=== PATIENT | male | born 1950 | race Caucasian/White ===

== ENCOUNTER → 2018-02-13 07:01 | Outpatient (CLI) | payer MEDICARE, BC, SELFPAY ==
[2018-02-13 08:05] LABS: Alanine Aminotransferase 34 IU/L (21-72); Albumin 4.5 g/dL (3.5-5.0); Albumin Globulin Ratio 1.7 (1.0-2.8); Alkaline Phosphatase 85 U/L (38-126); Aspartate Aminotransferase 27 IU/L (17-59); BUN Creatinine Ratio 27.5 (6-22); Bilirubin Total 0.6 mg/dL (0.2-1.3); Blood Urea Nitrogen 22 mg/dL (9-20); Calcium 9.9 mg/dL (8.4-10.2); Carbon Dioxide 27 mmol/L (22-32); Chloride 101 mmol/L (98-107); Cholesterol 154 mg/dL (140-199); Estimated Glomerular Filt Rate > 60.0 mL/min (>60); Globulin 2.7 g/dL (1.7-4.1); Glucose 102 mg/dL (80-110); HDL Cholesterol 32 mg/dL (40-60); HEMOLYSIS < 15 (0-50); LDL Cholesterol Calculated 96 mg/dL (<100); Potassium 4.4 mmol/L (3.4-5.1); Sodium 141 mmol/L (137-145); Total Protein 7.2 g/dL (6.3-8.2); Triglycerides 130 mg/dL (35-150); Uric Acid 5.8 mg/dL (3.5-8.5)
[2018-02-13 08:34] LABS: Prostate Specific Antigen Scrn 2.58 ng/mL (0.1-4.0)
== END ==
PROVIDERS: PCP Internal Medicine; Visit Provider Internal Medicine
DX: I10 Essential (primary) hypertension (principal); E78.2 Mixed hyperlipidemia; M10.079 Idiopathic gout, unspecified ankle and foot
CPT/HCPCS: 36415; 80053; 80061; 84550; G0103

== ENCOUNTER → 2019-04-02 07:07 | Outpatient (CLI) | payer MEDICARE, BC, SELFPAY ==
[2019-04-02 08:30] LABS: Alanine Aminotransferase 44 IU/L (21-72); Albumin 4.6 g/dL (3.5-5.0); Albumin Globulin Ratio 1.8 (1.0-2.8); Alkaline Phosphatase 93 U/L (38-126); Aspartate Aminotransferase 28 IU/L (17-59); BUN Creatinine Ratio 27.8 (6-22); Bilirubin Total 0.6 mg/dL (0.2-1.3); Blood Urea Nitrogen 25 mg/dL (9-20); Calcium 9.8 mg/dL (8.4-10.2); Carbon Dioxide 24 mmol/L (22-32); Chloride 105 mmol/L (98-107); Cholesterol 127 mg/dL (140-199); Estimated Glomerular Filt Rate > 60.0 mL/min (>60); Globulin 2.5 g/dL (1.7-4.1); Glucose 104 mg/dL (80-110); HDL Cholesterol 29 mg/dL (40-60); HEMOLYSIS < 15 (0-50); LDL Cholesterol Calculated 74 mg/dL (<100); Potassium 4.4 mmol/L (3.4-5.1); Sodium 141 mmol/L (137-145); Total Protein 7.1 g/dL (6.3-8.2); Triglycerides 119 mg/dL (35-150); Uric Acid 5.7 mg/dL (3.5-8.5)
[2019-04-02 08:57] LABS: Prostate Specific Antigen Scrn 3.19 ng/mL (0.1-4.0)
== END ==
PROVIDERS: PCP Internal Medicine; Visit Provider Internal Medicine
DX: E78.2 Mixed hyperlipidemia (principal); I10 Essential (primary) hypertension; M10.079 Idiopathic gout, unspecified ankle and foot; Z12.5 Encounter for screening for malignant neoplasm of prostate
CPT/HCPCS: 36415; 80053; 80061; 84550; G0103

== ENCOUNTER → 2019-04-19 07:37 | Outpatient (CLI) | payer MEDICARE, BC, SELFPAY ==
--- NOTE | 2019-04-19 | DI.MRI.S_ITS ---
PROCEDURE: MR SHOULDER LT WO CON INDICATIONS: torn left rotator cuff TECHNIQUE: Noncontrast oblique coronal T2 fast spin echo with fat saturation, oblique sagittal T1 spin echo and T2 fast spin echo with fat saturation, axial T1 spin echo and T2 fast spin echo with fat saturation through the shoulder. COMPARISON: [facility] [place], CR, XR SHOULDER 2+ VIEWS LEFT, 04/14/2019, 8:13. FINDINGS: Image quality: Diagnostic. Rotator cuff: There is marked thickening and increased signal involving the supraspinatus, infraspinatus, and subscapularis tendons. A regular partial-thickness tearing along the anterior distal supraspinatus tendon is present that is moderate to high-grade in nature. No definite full-thickness tears are appreciated. The teres minor tendon is intact. There is no significant atrophy of the rotator cuff muscles. Bones and bursae: No acute fracture, dislocation, or suspicious osseous lesion is evident. Moderate degenerative changes of the glenohumeral joint are present. There is prominent marrow edema involving the greater tuberosity of the humeral head with areas of mild degenerative cystic change. Moderate degenerative changes of the acromio clavicular joint are present. There is no significant glenohumeral joint effusion. Large amount of fluid is contained within the subacromial subdeltoid bursa. Capsule and soft tissues: Evaluation of the glenoid labrum is difficult without intra-articular contrast. No acute injury is suspected. No paravertebral cysts are identified. No acute ligamentous injuries of the shoulder are appreciated. The long head of the biceps tendon is positioned within the bicipital groove. However, there is thickening and increased signal involving the proximal aspect of this tendon with low to moderate grade intrasubstance partial thickness tearing. IMPRESSION: 1. Severe rotator cuff tendinopathy is more prominent of the supraspinatus tendon. There is moderate to high-grade partial-thickness tearing near the rotator interval of the supraspinatus tendon. 2. Low to moderate grade partial-thickness tearing of the long head of the biceps tendon with corresponding tendinopathy. 3. Moderate degenerative changes of the glenohumeral and the acromioclavicular joints. 4. Fluid within the subacromial subdeltoid bursa suspicious for bursitis. Dictated by: Sylvester Mayfield M.D. on 04/19/2019 at 16:11 Approved by: Sylvester Mayfield M.D. on 04/19/2019 at 16:16
== END ==
PROVIDERS: PCP Internal Medicine; Visit Provider Orthopaedic Surgery
DX: M75.112 Incomplete rotator cuff tear or rupture of left shoulder, not specified as traumatic (principal); S46.112A Strain of muscle, fascia and tendon of long head of biceps, left arm, initial encounter
CPT/HCPCS: 73221

== ENCOUNTER → 2020-01-07 10:37 | Outpatient (CLI) | payer MEDICARE, BC, SELFPAY ==
--- NOTE | 2020-01-07 10:39 | DI.RAD.S_ITS ---
PROCEDURE: XR FOOT RT MIN 3V INDICATIONS: foot pain TECHNIQUE: 3 views of the foot were acquired. COMPARISON: None. FINDINGS: Bones: No fractures or dislocations. No suspicious bony lesions. Incidental note is made of a bipartite medial sesamoid bone. Age-appropriate bony degenerative changes are seen. A plantar calcaneal spur is seen. Soft tissues: No tibiotalar joint effusion. Achilles tendon appears normal. IMPRESSION: Age-appropriate degenerative change, with a plantar calcaneal spur noted. Dictated by: Quique Sotelo M.D. on 01/07/2020 at 11:03 Approved by: Quique Sotelo M.D. on 01/07/2020 at 11:04
== END ==
PROVIDERS: PCP Internal Medicine; Referring Provider Internal Medicine; Visit Provider Internal Medicine
DX: M79.671 Pain in right foot (principal); M77.31 Calcaneal spur, right foot
CPT/HCPCS: 73630

== ENCOUNTER → 2020-03-27 07:51 | Outpatient (CLI) | payer MEDICARE, BC, SELFPAY ==
[2020-03-27 09:04] LABS: Alanine Aminotransferase 31 IU/L (<50); Albumin 4.7 g/dL (3.5-5.0); Albumin Globulin Ratio 2.1 (1.0-2.8); Alkaline Phosphatase 93 U/L (38-126); Aspartate Aminotransferase 30 IU/L (17-59); BUN Creatinine Ratio 34.1 (6-22); Bilirubin Total 0.6 mg/dL (0.2-1.3); Blood Urea Nitrogen 43 mg/dL (9-20); Calcium 10.1 mg/dL (8.4-10.2); Carbon Dioxide 26 mmol/L (22-32); Chloride 104 mmol/L (98-107); Cholesterol 120 mg/dL (140-199); Estimated Glomerular Filt Rate 56.6 mL/min (>60); Globulin 2.2 g/dL (1.7-4.1); Glucose 102 mg/dL (80-110); HDL Cholesterol 24 mg/dL (40-60); HEMOLYSIS < 15 (0-50); LDL Cholesterol Calculated 56 mg/dL (<100); Potassium 4.8 mmol/L (3.4-5.1); Sodium 139 mmol/L (137-145); Total Protein 6.9 g/dL (6.3-8.2); Triglycerides 198 mg/dL (35-150)
== END ==
PROVIDERS: PCP Internal Medicine; Referring Provider Internal Medicine; Visit Provider Internal Medicine
DX: E78.2 Mixed hyperlipidemia (principal); I10 Essential (primary) hypertension
CPT/HCPCS: 36415; 80053; 80061

== ENCOUNTER → 2020-09-28 07:01 | Outpatient (CLI) | payer MEDICARE, BC, SELFPAY ==
[2020-09-28 08:28] LABS: Alanine Aminotransferase 25 IU/L (<50); Albumin 4.4 g/dL (3.5-5.0); Albumin Globulin Ratio 1.9 (1.0-2.8); Alkaline Phosphatase 87 U/L (38-126); Aspartate Aminotransferase 27 IU/L (17-59); BUN Creatinine Ratio 31.3 (6-22); Bilirubin Total 0.5 mg/dL (0.2-1.3); Blood Urea Nitrogen 26 mg/dL (9-20); Calcium 9.8 mg/dL (8.4-10.2); Carbon Dioxide 27 mmol/L (22-32); Chloride 100 mmol/L (98-107); Cholesterol 120 mg/dL (140-199); Estimated Glomerular Filt Rate > 60.0 mL/min (>60); Globulin 2.3 g/dL (1.7-4.1); Glucose 103 mg/dL (80-110); HDL Cholesterol 38 mg/dL (40-60); HEMOLYSIS < 15 (0-50); LDL Cholesterol Calculated 56 mg/dL (<100); Potassium 4.5 mmol/L (3.4-5.1); Sodium 133 mmol/L (137-145); Total Protein 6.7 g/dL (6.3-8.2); Triglycerides 132 mg/dL (35-150)
[2020-09-28 08:59] LABS: Prostate Specific Antigen Scrn 2.93 ng/mL (0.1-4.0)
== END ==
PROVIDERS: PCP Internal Medicine; Referring Provider Internal Medicine; Visit Provider Internal Medicine
DX: E78.2 Mixed hyperlipidemia (principal); Z12.5 Encounter for screening for malignant neoplasm of prostate; I10 Essential (primary) hypertension; N18.2 Chronic kidney disease, stage 2 (mild)
CPT/HCPCS: 36415; 80053; 80061; G0103

== ENCOUNTER → 2021-06-20 07:02 | Outpatient (CLI) | payer MEDICARE, BC, SELFPAY ==
[2021-06-20 09:07] LABS: Alanine Aminotransferase 35 IU/L (<50); Albumin 4.6 g/dL (3.5-5.0); Alkaline Phosphatase 79 U/L (38-126); Aspartate Aminotransferase 34 IU/L (17-59); BUN Creatinine Ratio 24.4 (6-22); Bilirubin Total 0.5 mg/dL (0.2-1.3); Blood Urea Nitrogen 30 mg/dL (9-20); Carbon Dioxide 27 mmol/L (22-32); Chloride 100 mmol/L (98-107); Cholesterol 139 mg/dL (140-199); Globulin 2.3 g/dL (1.7-4.1); Glucose 94 mg/dL (80-110); HDL Cholesterol 33 mg/dL (40-60); HEMOLYSIS < 15 (0-50); LDL Cholesterol Calculated 74 mg/dL (<100); Potassium 4.6 mmol/L (3.4-5.1); Sodium 137 mmol/L (137-145); Total Protein 6.9 g/dL (6.3-8.2); Triglycerides 158 mg/dL (35-150); Uric Acid 5.3 mg/dL (3.5-8.5)
== END ==
PROVIDERS: PCP Internal Medicine; Referring Provider Internal Medicine; Visit Provider Internal Medicine
DX: E78.2 Mixed hyperlipidemia (principal); I10 Essential (primary) hypertension; N18.2 Chronic kidney disease, stage 2 (mild)
CPT/HCPCS: 36415; 80053; 80061; 84550

== ENCOUNTER → 2022-05-28 06:57 | Outpatient (CLI) | payer MEDICARE, BC, SELFPAY ==
[2022-05-28 08:40] LABS: Alanine Aminotransferase 27 IU/L (<50); Albumin 4.5 g/dL (3.5-5.0); Albumin Globulin Ratio 1.6 (1.0-2.8); Alkaline Phosphatase 84 U/L (38-126); Aspartate Aminotransferase 26 IU/L (17-59); BUN Creatinine Ratio 35.2 (6-22); Bilirubin Total 0.5 mg/dL (0.2-1.3); Blood Urea Nitrogen 50 mg/dL (9-20); Calcium 9.4 mg/dL (8.4-10.2); Carbon Dioxide 25 mmol/L (22-32); Chloride 103 mmol/L (98-107); Cholesterol 125 mg/dL (140-199); Estimated Glomerular Filt Rate 53 mL/min (>60); Globulin 2.9 g/dL (1.7-4.1); Glucose 99 mg/dL (80-110); HDL Cholesterol 26 mg/dL (40-60); HEMOLYSIS < 15 (0-50); LDL Cholesterol Calculated 64 mg/dL (<100); Potassium 4.6 mmol/L (3.4-5.1); Sodium 137 mmol/L (137-145); Total Protein 7.4 g/dL (6.3-8.2); Triglycerides 173 mg/dL (35-150); Uric Acid 6.4 mg/dL (3.5-8.5)
== END ==
PROVIDERS: PCP Internal Medicine; Referring Provider Internal Medicine; Visit Provider Internal Medicine
DX: E78.2 Mixed hyperlipidemia (principal); I10 Essential (primary) hypertension; M10.071 Idiopathic gout, right ankle and foot
CPT/HCPCS: 36415; 80053; 80061; 84550

== ENCOUNTER → 2022-09-10 06:43 | Outpatient (CLI) | payer MEDICARE, BC, SELFPAY ==
[2022-09-10 07:35] LABS: BUN Creatinine Ratio 37.3 (6-22); Blood Urea Nitrogen 44 mg/dL (9-20); Calcium 9.4 mg/dL (8.4-10.2); Carbon Dioxide 21 mmol/L (22-32); Chloride 106 mmol/L (98-107); Estimated Glomerular Filt Rate > 60 mL/min (>60); Glucose 94 mg/dL (80-110); HEMOLYSIS < 15 (0-50); Potassium 4.6 mmol/L (3.4-5.1); Sodium 140 mmol/L (137-145); Uric Acid 5.3 mg/dL (3.5-8.5)
== END ==
PROVIDERS: PCP Internal Medicine; Referring Provider Internal Medicine; Visit Provider Internal Medicine
DX: N18.31 Chronic kidney disease, stage 3a (principal); E78.2 Mixed hyperlipidemia; I10 Essential (primary) hypertension; M10.079 Idiopathic gout, unspecified ankle and foot
CPT/HCPCS: 36415; 80048; 84550

== ENCOUNTER → 2023-05-02 06:50 | Outpatient (CLI) | payer MEDICARE, BC, SELFPAY ==
[2023-05-02 09:01] LABS: Alanine Aminotransferase 29 IU/L (<50); Albumin 4.6 g/dL (3.5-5.0); Albumin Globulin Ratio 1.7 (1.0-2.8); Alkaline Phosphatase 79 U/L (38-126); Aspartate Aminotransferase 29 IU/L (17-59); BUN Creatinine Ratio 47.7 (6-22); Bilirubin Total 0.5 mg/dL (0.2-1.3); Blood Urea Nitrogen 71 mg/dL (9-20); Calcium 9.6 mg/dL (8.4-10.2); Carbon Dioxide 23 mmol/L (22-32); Chloride 100 mmol/L (98-107); Cholesterol 128 mg/dL (140-199); Estimated Glomerular Filt Rate 49 mL/min (>60); Globulin 2.7 g/dL (1.7-4.1); Glucose 93 mg/dL (80-110); HDL Cholesterol 26 mg/dL (40-60); HEMOLYSIS < 15 (0-50); LDL Cholesterol Calculated 60 mg/dL (<100); Sodium 135 mmol/L (137-145); Total Protein 7.3 g/dL (6.3-8.2); Triglycerides 210 mg/dL (35-150); Uric Acid 5.1 mg/dL (3.5-8.5)
== END ==
PROVIDERS: PCP Internal Medicine; Referring Provider Internal Medicine; Visit Provider Internal Medicine
DX: E78.2 Mixed hyperlipidemia (principal); I10 Essential (primary) hypertension; N18.31 Chronic kidney disease, stage 3a
CPT/HCPCS: 36415; 80053; 80061; 84550

== ENCOUNTER → 2023-11-04 07:00 | Outpatient (CLI) | payer MEDICARE, BC, SELFPAY ==
[2023-11-04 08:48] LABS: Alanine Aminotransferase 33 IU/L (<50); Albumin 4.6 g/dL (3.5-5.0); Albumin Globulin Ratio 1.8 (1.0-2.8); Alkaline Phosphatase 78 U/L (38-126); Aspartate Aminotransferase 31 IU/L (17-59); BUN Creatinine Ratio 28.2 (6-22); Bilirubin Total 0.7 mg/dL (0.2-1.3); Blood Urea Nitrogen 35 mg/dL (9-20); Calcium 10.3 mg/dL (8.4-10.2); Carbon Dioxide 22 mmol/L (22-32); Chloride 106 mmol/L (98-107); Cholesterol 127 mg/dL (140-199); Estimated Glomerular Filt Rate > 60 mL/min (>60); Globulin 2.6 g/dL (1.7-4.1); Glucose 107 mg/dL (80-110); HDL Cholesterol 37 mg/dL (40-60); HEMOLYSIS < 15 (0-50); LDL Cholesterol Calculated 65 mg/dL (<100); Potassium 4.6 mmol/L (3.4-5.1); Sodium 138 mmol/L (137-145); Total Protein 7.2 g/dL (6.3-8.2); Triglycerides 125 mg/dL (35-150); Uric Acid 5.6 mg/dL (3.5-8.5)
== END ==
PROVIDERS: PCP Internal Medicine; Referring Provider Internal Medicine; Visit Provider Internal Medicine
DX: N18.31 Chronic kidney disease, stage 3a (principal); I10 Essential (primary) hypertension; E78.2 Mixed hyperlipidemia; M10.079 Idiopathic gout, unspecified ankle and foot
CPT/HCPCS: 36415; 80053; 80061; 84550

== ENCOUNTER → 2023-11-08 08:54 | Outpatient (CLI) | payer MEDICARE, BC, SELFPAY ==
--- NOTE | 2023-11-08 | DI.MRI.S_ITS ---
PROCEDURE: MR LUMBAR SPINE WO CON INDICATIONS: LUMBAR PAIN TECHNIQUE: Noncontrast sagittal T1 spin echo and T2 fast echo, sagittal STIR, and T2 fast spin echo through the lumbar spine. In cases with scoliosis, additional coronal T2 fast spin echo may be performed. COMPARISON: None. FINDINGS: Image quality: Excellent. Alignment and Curvature: There is trace anterolisthesis of L3 on L4, L4 on L5. Bone Marrow: Marrow is of normal overall signal. Mild reactive endplate changes are present at the superior endplate of L4 consistent with Schmorl's node. No acute vertebral body compression fractures. Spinal Cord: Conus medullaris terminates at the L1 level. Visualized cord demonstrates normal signal and size. Paraspinous Soft Tissues: No paravertebral masses. Discs: Scattered ljme-xg-viicgeog disc desiccation is present throughout the lumbar spine. T12-L1: No disc bulge, spinal stenosis or foraminal narrowing. L1-L2: No disc bulge, spinal stenosis or foraminal narrowing. Mild facet and ligamentum flavum hypertrophy. L2-L3: Mild disc bulge with mild spinal stenosis. No foraminal narrowing. Facet and ligamentum flavum hypertrophy are present. L3-L4: Mild disc bulge with mild spinal stenosis. Moderate bilateral foraminal narrowing with facet and ligamentum flavum hypertrophy. L4-L5: Mild disc bulge with moderate spinal stenosis. Ebwz-cl-szxkjlzb bilateral foraminal narrowing with facet and ligamentum flavum hypertrophy. L5-S1: Mild disc bulge with superimposed left posterior paracentral protrusion with what appears to be a small superimposed extrusion. It measures approximately 4 mm. Moderate right and minimal to mild left foraminal narrowing with facet and ligamentum flavum hypertrophy. It is causing severe compromise of the right lateral recess. IMPRESSION: Small disc bulge with posterior protrusion and superimposed extrusion with severe compromise of the left lateral recess at L5-S1. Multilevel spinal stenosis secondary to disc bulge with contributing effect of facet/ligamentum flavum arthropathy. Dictated by: Roxana Dallas M.D. on 11/10/2023 at 15:44 Approved by: Roxana Dallas M.D. on 11/10/2023 at 15:48
== END ==
PROVIDERS: PCP Internal Medicine; Referring Provider Physical Medicine & Rehabilitation; Visit Provider Physical Medicine & Rehabilitation
DX: M47.816 Spondylosis without myelopathy or radiculopathy, lumbar region (principal); M47.817 Spondylosis without myelopathy or radiculopathy, lumbosacral region; M51.36 Other intervertebral disc degeneration, lumbar region; M51.37 Other intervertebral disc degeneration, lumbosacral region; M51.27 Other intervertebral disc displacement, lumbosacral region; M48.061 Spinal stenosis, lumbar region without neurogenic claudication; M48.07 Spinal stenosis, lumbosacral region
CPT/HCPCS: 72148

== ENCOUNTER → 2023-12-09 09:52 | Outpatient (CLI) | payer MEDICARE, BC, SELFPAY | PROVIDERS: PCP Internal Medicine; Referring Provider Orthopaedic Surgery Orthopaedic Surgery of the Spine; Visit Provider Orthopaedic Surgery Orthopaedic Surgery of the Spine | DX: Z01.818 Encounter for other preprocedural examination (principal) | CPT/HCPCS: 93005; 93010 ==

== ENCOUNTER → 2023-12-22 09:13 | Outpatient (CLI) | payer MEDICARE, BC, SELFPAY ==
[2023-12-22 10:13] LABS: Add Manual Diff / Slide Review NO; Basophils Absolute Auto 100 /uL (0-100); Basophils Percent Auto 1.2 % (0-2); Eosinophils Absolute Auto 100 /uL (0-450); Eosinophils Percent Auto 1.7 % (2-4); Hematocrit 39.4 % (41-53); Hemoglobin 13.4 g/dL (13.5-17.5); Lymphocytes Absolute Auto 1500 /uL (1100-4500); Lymphocytes Percent Auto 24.6 % (25-40); Mean Corpuscular Hemoglobin 30.8 PG (26-34); Mean Corpuscular Volume 90.5 fL (80-100); Monocytes Absolute Auto 500 /uL (0-900); Monocytes Percent Auto 7.8 % (3-14); Neutrophils Absolute Auto 3800 /uL (1500-7000); Neutrophils Percent Auto 64.7 % (50-75); Platelet Count 138 X10^3/uL (150-400); Red Blood Cell Count 4.35 X10^6/uL (4.5-5.9); Red Cell Distribution Width 14.6 % (11.6-14.8)
== END ==
PROVIDERS: Orthopaedic Surgery Orthopaedic Surgery of the Spine; PCP Internal Medicine; Referring Provider Internal Medicine; Visit Provider Internal Medicine
DX: Z01.812 Encounter for preprocedural laboratory examination (principal)
CPT/HCPCS: 36415; 85025

== ENCOUNTER 2024-01-07 07:19 | Day surgery (SDC) | payer MEDICARE, BC, SELFPAY ==
[2024-01-01 08:47] VITALS: BMI 25.9
[2024-01-07] VITALS (7 sets, daily range): BP systolic 131–158; BP diastolic 59–87; PULSE 100–112; RESP 10–18; TEMP 36.2–36.6; O2SAT 96–98; BMI 25.8
--- NOTE | 2024-01-07 | DI.RAD.S_ITS ---
PROCEDURE: XR LUMBAR SPINE 2-3V INDICATIONS: mircrodiscectomy L5-S1 TECHNIQUE: Fluoroscopic guidance utilized for a micro discectomy COMPARISON: None. FINDINGS: Fluoroscopic images submitted for a micro discectomy at L5-S1. Please see operative note for further discussion. IMPRESSION: Fluoroscopic guidance. Dictated by: Jaime Sloan M.D. on 01/07/2024 at 11:22 Approved by: Jaime Sloan M.D. on 01/07/2024 at 11:23
[2024-01-07] MEDS: LACTATED RINGERS 1,000 ML 42 ML IV (07:57)
--- NOTE | 2024-01-07 08:27 | SUR.OPER ---
Prone on spine table, head in foam head support, padded chest and pelvic supports, gel pad at knees, lower legs supported by pillows; nipples, genitalia and toes free of pressure, arms secured on foam padded arm boards at <90 degrees abduction. Tape over blanket at thigh secured to table.
--- NOTE | 2024-01-07 08:35 | PM.PREOP ---
Pre-operative Note Interval Note History & Physical reviewed/Exam performed by Physician: Yes Changes to H&P: No
[2024-01-07] MEDS: CEFAZOLIN 2 GM/100 ML PREMIX 100 ML IV (09:00)
[2024-01-07] MEDS: BUPIVACAINE 0.25% (PF) 30 ML, EPINEPHrine 0.15 MG INJ (09:12)
--- NOTE | 2024-01-07 09:40 | PM.OP.1 ---
Operative Date/Time/Diagnoses Date of procedure: 01/07/24 Time of procedure: 08:40 Pre-op diagnosis: 1. L5-S1 disc herniation 2. Lumbar radiculopathy Post-op diagnosis: same Procedure & Clinicians Procedure: 1. L5-S1 left microdiscectomy 2. Utilization of microsurgical technique and operating microscope Same procedure as scheduled: Yes Indications: Patient has been having acute onset back pain and worsening lumbar radiculopathy to his left leg. Patient has MRI showing L5-S1 paramedian disc herniation left side impinging on the left S1 nerve root correlating with his current symptoms. Patient failed multiple conservative management with worsening pain weakness and numbness in his lower extremity. Patient has been having difficulty performing activity of daily living. After discussing risks benefits of treatment options, patient elected proceed with surgery. Surgeon: Clarence Senior Marketing Operations Manager: Melany Montez Click Yes if Unassisted: No Anesthesia Type: General Operative Notes Closure Type: primary Specimen(s): none sent Estimated Blood Loss (mL): 3 Blood products transfused: none Procedure in detail: Patient was seen in the preoperative area. Risks and benefits of the surgery was discussed with the patient. Informed consent was obtained from the patient and placed in the chart. Surgical site was marked. Patient was taken to the operative room. General anesthesia was administered. Prophylactic antibiotic was given to the patient less than 30 min before the incision was made. Patient was placed into a prone position on the Carmine table. Patient's back was then prepped and draped in the sterile fashion. Time-out was performed at this time. Using AP and lateral C-arm imaging the interval between L5-S1 was identified and marked on patient's back. A 1 inch incision 1 in from midline was made on the left side. The fascia was incised in line with skin incision. Globus MARS retractors was placed inside the incision and docked onto the L5 lamina. Using microsurgical technique and operating microscope, a L5 laminotomy was performed using a Kerrison rongeur. Liagamentum flavum was resected at the site of the laminotomy. The disc space at L5-S1 was identified. Microdiscectomy was performed by incising the annulus with #11 blade. Microcurettes and pituitary was used to removed herniated disc fragments of disc from the epidural space. After the microdiskectomy was completed, the area medial lateral superior and inferior to the area of the microdiskectomy was inspected and explored using a micro curette. No other impinging structure was identified. The wound was then irrigated with sterile normal saline. 40 mg Depo-Medrol was placed into the epidural space. The deep fascia was closed with 1-0 Vicryl. The subcutaneous tissue was closed with 2-0 Vicryl. The skin was closed with 4-0 Monocryl. Patient tolerated the procedure well. There were no complications. Patient was transferred recovery room in stable condition. The Operation could not have been safely performed without compromising the technical result or length of the procedure, without the assistance of a skilled surgical services assistant. The surgical services assistant was medically necessary for proper positioning, retraction and manipulation of instruments, proper exposure, surgical preparation, and manipulation of tissue. Complications: none Post-operative Condition: stable Disposition: PACU Plan for aftercare: Discharge to home
[2024-01-07] MEDS: BENZOCAINE/MENTHOL 1 LOZ PKT 1 EACH PO (10:17)
[2024-01-07] MEDS: OXYCODONE IR 5 MG TABLET PO (10:35)
[2024-01-07] MEDS: ACETAMINOPHEN 325 MG TABLET 650 MG PO (10:35)
== END 2024-01-07 09:54 | disposition home or self-care (01) ==
PROVIDERS: PCP Internal Medicine; Referring Provider Orthopaedic Surgery Orthopaedic Surgery of the Spine; Visit Provider Orthopaedic Surgery Orthopaedic Surgery of the Spine
PROC: (CPT 63030; principal; 2024-01-07 08:45)
DX: M51.26 Other intervertebral disc displacement, lumbar region (principal); M54.16 Radiculopathy, lumbar region; N99.89 Other postprocedural complications and disorders of genitourinary system; R33.8 Other retention of urine
CPT/HCPCS: 63030; 51702; 51798; 72100; 76000; 99283; J0171; J0690; J1100; J2405; J2704; J2919; J3010

== ENCOUNTER 2024-01-07 21:35 | Emergency (ER) | payer MEDICARE, BC, SELFPAY ==
[2024-01-07 21:51] VITALS: BP 159/72; PULSE 120; RESP 22; TEMP 36.6; O2SAT 97; BMI 25.8
--- NOTE | 2024-01-07 22:28 | ED_ITS ---
HPI - Male Genitourinary General Chief complaint: Urogenital-Male Stated complaint: unable to urinate since surgery this am Time Seen by Provider: 01/07/24 21:56 Source: patient Mode of arrival: Ambulatory History of Present Illness HPI Narrative: 73-year-old male presents for urinary retention since 04/06 this morning. Patient states he had laminectomy performed earlier today at [facility]. He was discharged home after recovery. But patient states that he was unable to urinate. He reports concern that his pain medications have caused urinary retention and his discharge paperwork told him to come to the emergency department for evaluation. Related Data Home Medications Medication Instructions Recorded Confirmed ASCORBIC ACID (VITAMIN C) 500 mg PO Q DAY ##0 12/24/11 01/07/24 VITAMIN E (#CENTRUM 400 iu PO Q DAY ##0 12/24/11 01/07/24 SINGLES-VITAMIN E) [FOLIC ACID] Q DAY ##0 12/24/11 12/02/23 glucosamine sulf dipot 1 cap PO DAILY 04/12/19 01/07/24 chlr,msm,chond 550 mg-C 30 mg-victor m 1 mg capsule (Glucosamine Chondroitin) Fish Oil (Fish Oil 500 MG Softgel) 500 mg PO .qotherday ##0 10/11/19 01/07/24 cyclobenzaprine 5 mg tablet 5 mg PO 3XD PRN Pain, Moderate 12/02/23 01/07/24 Lipitor 10 mg PO BEDTIME 01/07/24 01/07/24 Previous Rx's Medication Instructions Recorded colchicine 0.6 mg capsule See Rx Instructions PO QID PRN 12/24/19 gout #90 caps hydrochlorothiazide 25 mg tablet 25 mg PO DAILY #90 tabs 02/28/23 atorvastatin 10 mg tablet (Lipitor) 10 mg PO QDAY #90 tabs 08/12/23 tadalafil 20 mg tablet (Cialis) See Rx Instructions PO QDAYP PRN 11/11/23 erectile dysfunction #60 tabs allopurinol 300 mg tablet 300 mg PO DAILY #90 tabs 11/25/23 lisinopril 40 mg tablet See Rx Instructions .Route 11/25/23 .COMPLEX #90 tabs tamsulosin 0.4 mg capsule (Flomax) 0.4 mg PO DAILY #30 caps 01/07/24 Allergies Allergy/AdvReac Type Severity Reaction Status Date / Time ibuprofen [IBUPROFEN] Allergy Mild Verified 01/07/24 08:00 peanut [PEANUT] Allergy Mild Verified 01/07/24 08:00 cedarwood [CEDARWOOD] Allergy Unknown difficulty Verified 01/07/24 08:00 breathing rosuvastatin [From CRESTOR] AdvReac Intermediate leg cramps Verified 01/07/24 08:00 Review of Systems Review of Systems Narrative: See HPI Patient History Medical History BPH w urinary obs/LUTS COVID-19 Chronic renal failure, stage 3a Erectile dysfunction Peripheral arterial disease Hayfever Skin cancer (1998) Idiopathic gout involving toe (12/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 Sister No problems noted. 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 travel history: recent ([place], [facility]) leisure activities: art ([employer]) and other (Building a [employer] Smoking Status: Former smoker Tobacco: How many years used: 50 (40 years every day, 10 years on and off.) Smokeless tobacco user: other (Cigarettes) quit status: has quit before second hand exposure: No alcohol intake: former substance use type: does not use Smoking Status: Former smoker Substance Use Type: does not use Exam Initial Vital Signs Initial Vital Signs: Vital Signs Temperature 97.9 F 01/07/24 21:51 Pulse Rate 120 H 01/07/24 21:51 Respiratory Rate 22 01/07/24 21:51 Blood Pressure 159/72 H 01/07/24 21:51 Pulse Oximetry 97 01/07/24 21:51 Oxygen Delivery Method Room Air 01/07/24 21:51 Const: Awake, alert, mild discomfort GI: Soft, suprapubic fullness Skin: Warm, Dry, intact, no rashes Neuro: AO x3, CN II-XII grossly intact, moves all extremities Course Orders Ordered: Discontinued Medications Lidocaine HCl (Lidocaine 2% (Glydo) 6 Ml Gel) 6 ml TOP NOW ONE Stop: 01/07/24 22:29 Last Admin: 01/07/24 22:44 Dose: 6 ml Documented By: AB Vital Signs Vital signs: Vital Signs - 8 hr 01/07/24 21:51 01/07/24 23:52 Temperature 97.9 F Pulse Rate 120 H 110 H Respiratory Rate 22 16 Blood Pressure 159/72 H 129/76 Pulse Oximetry 97 94 Oxygen Delivery Method Room Air Room Air MDM - Male Genitourinary MDM Narrative Medical decision making narrative: Postoperative urinary retention. Medina placed with drainage of 1700 cc of clear yellow urine. Patient fitted with leg bag and given care instructions from nursing staff. He was advised to follow up with primary and Urology. In the interim started on Flomax. Discharge Plan Departure Patient Disposition: Home Clinical Impression: Postoperative urinary retention Instructions: How to Care for Your Medina Catheter -- Male, DI for Urinary Retention in Men Activity Restrictions/Additional Instructions: Your bladder was holding approximately 1700 mL of urine when we placed the Medina catheter. Take Flomax daily. Please follow up with your primary care physician and Urology for Medina catheter management. Prescriptions: New tamsulosin [Flomax] 0.4 mg capsule 0.4 mg PO DAILY Qty: 30 0RF No Action ASCORBIC ACID (VITAMIN C) 500 mg PO Q DAY Qty: 0 VITAMIN E (#CENTRUM SINGLES-VITAMIN E) 400 iu PO Q DAY Qty: 0 [FOLIC ACID] Q DAY Qty: 0 Fish Oil (Fish Oil 500 MG Softgel) 500 mg PO .qotherday Qty: 0 colchicine 0.6 mg capsule See Rx Instructions PO QID PRN (Reason: gout) Qty: 90 1RF Dose Instruction: 1-2 tabs PO QID PRN; Rx Instructions: 1-2 tabs PO QID PRN; hydrochlorothiazide 25 mg tablet 25 mg PO DAILY Qty: 90 2RF atorvastatin [Lipitor] 10 mg tablet 10 mg PO QDAY Qty: 90 3RF lisinopril 40 mg tablet See Rx Instructions .ROUTE .COMPLEX Qty: 90 3RF Dose Instruction: TAKE 1 TABLET BY MOUTH EVERY DAY Rx Instructions: TAKE 1 TABLET BY MOUTH EVERY DAY allopurinol 300 mg tablet 300 mg PO DAILY Qty: 90 3RF Glucosamine Chondroitin 550-30-1 mg capsule 1 cap PO DAILY tadalafil [Cialis] 20 mg tablet See Rx Instructions PO QDAYP PRN (Reason: erectile dysfunction) Qty: 60 6RF Dose Instruction: 1/2- 1 tab PO QDAYP PRN; Rx Instructions: 1/2- 1 tab PO QDAYP PRN; cyclobenzaprine 5 mg tablet 5 mg PO 3XD PRN (Reason: Pain, Moderate) Lipitor 10 mg PO BEDTIME Referrals: Yolanda Alfred MD [Physician] - Al Johnston MD [Primary Care Provider] - Stand Alone Forms: Patient Portal/API
[2024-01-07] MEDS: LIDOCAINE 2% (GLYDO) 6 ML GEL TOP (22:44)
[2024-01-07 23:52] VITALS: BP 129/76; PULSE 110; RESP 16; O2SAT 94
== END 2024-01-07 23:56 | disposition home or self-care (01) ==
PROVIDERS: Emergency Provider Emergency Medicine; PCP Internal Medicine
DX: N99.89 Other postprocedural complications and disorders of genitourinary system (principal); R33.8 Other retention of urine
CPT/HCPCS: 51798

== ENCOUNTER → 2024-02-25 13:33 | Outpatient (CLI) | payer MEDICARE, BC, SELFPAY ==
[2024-02-25 15:19] LABS: Prostate Specific Antigen 4.52 ng/mL (0.10-4.00)
== END ==
PROVIDERS: PCP Internal Medicine; Referring Provider Specialist; Visit Provider Specialist
DX: N40.1 Benign prostatic hyperplasia with lower urinary tract symptoms (principal); N13.8 Other obstructive and reflux uropathy
CPT/HCPCS: 36415; 84153

== ENCOUNTER → 2024-04-05 14:49 | Outpatient (CLI) | payer MEDICARE, BC, SELFPAY ==
[2024-04-08 12:36] LABS: PSA Free % 33.1 % (.); PSA, Total 3.9 ng/mL (0.0-4.0)
== END ==
PROVIDERS: PCP Internal Medicine; Referring Provider Specialist; Visit Provider Specialist
DX: R97.20 Elevated prostate specific antigen [PSA] (principal); Z87.898 Personal history of other specified conditions
CPT/HCPCS: 36415; 84153; 84154

== ENCOUNTER → 2024-05-04 06:42 | Outpatient (CLI) | payer MEDICARE, BC, SELFPAY ==
[2024-05-04 08:34] LABS: Alanine Aminotransferase 22 IU/L (<50); Albumin 4.5 g/dL (3.5-5.0); Albumin Globulin Ratio 2.1 (1.0-2.8); Alkaline Phosphatase 80 U/L (38-126); Aspartate Aminotransferase 26 IU/L (17-59); Bilirubin Total 0.6 mg/dL (0.2-1.3); Blood Urea Nitrogen 49 mg/dL (9-20); Calcium 9.5 mg/dL (8.4-10.2); Carbon Dioxide 23 mmol/L (22-32); Chloride 104 mmol/L (98-107); Cholesterol 125 mg/dL (140-199); Estimated Glomerular Filt Rate 51 mL/min (>60); Globulin 2.1 g/dL (1.7-4.1); Glucose 94 mg/dL (80-110); HDL Cholesterol 33 mg/dL (40-60); HEMOLYSIS < 15 (0-50); LDL Cholesterol Calculated 74 mg/dL (<100); Potassium 4.9 mmol/L (3.4-5.1); Sodium 137 mmol/L (137-145); Total Protein 6.6 g/dL (6.3-8.2); Triglycerides 90 mg/dL (35-150); Uric Acid 5.1 mg/dL (3.5-8.5)
== END ==
PROVIDERS: PCP Internal Medicine; Referring Provider Internal Medicine; Visit Provider Internal Medicine
DX: E78.2 Mixed hyperlipidemia (principal); N18.31 Chronic kidney disease, stage 3a; M10.079 Idiopathic gout, unspecified ankle and foot; I12.9 Hypertensive chronic kidney disease with stage 1 through stage 4 chronic kidney disease, or unspecified chronic kidney disease
CPT/HCPCS: 36415; 80053; 80061; 84550

== ENCOUNTER → 2024-10-12 09:57 | Outpatient (CLI) | payer MEDICARE, BC, SELFPAY ==
[2024-10-12 11:50] LABS: Prostate Specific Antigen 2.72 ng/mL (0.10-4.00)
== END ==
PROVIDERS: PCP Internal Medicine; Referring Provider Urology; Visit Provider Urology
DX: R97.20 Elevated prostate specific antigen [PSA] (principal); N40.1 Benign prostatic hyperplasia with lower urinary tract symptoms; N13.8 Other obstructive and reflux uropathy
CPT/HCPCS: 36415; 84153

== ENCOUNTER → 2024-11-08 06:42 | Outpatient (CLI) | payer MEDICARE, BC, SELFPAY ==
[2024-11-08 08:35] LABS: Alanine Aminotransferase 25 IU/L (<50); Albumin 4.6 g/dL (3.5-5.0); Albumin Globulin Ratio 2.1 (1.0-2.8); Alkaline Phosphatase 82 U/L (38-126); Aspartate Aminotransferase 29 IU/L (17-59); BUN Creatinine Ratio 30.2 (6-22); Bilirubin Total 0.7 mg/dL (0.2-1.3); Blood Urea Nitrogen 49 mg/dL (9-20); Calcium 9.7 mg/dL (8.4-10.2); Carbon Dioxide 20 mmol/L (22-32); Chloride 105 mmol/L (98-107); Cholesterol 140 mg/dL (140-199); Estimated Glomerular Filt Rate 44 mL/min (>60); Globulin 2.2 g/dL (1.7-4.1); Glucose 95 mg/dL (80-110); HDL Cholesterol 36 mg/dL (40-60); HEMOLYSIS < 15 (0-50); LDL Cholesterol Calculated 84 mg/dL (<100); Sodium 138 mmol/L (137-145); Total Protein 6.8 g/dL (6.3-8.2); Triglycerides 100 mg/dL (35-150); Uric Acid 5.3 mg/dL (3.5-8.5)
[2024-11-08 08:36] LABS: Potassium 5.5 mmol/L (3.4-5.1)
== END ==
PROVIDERS: PCP Internal Medicine; Referring Provider Internal Medicine; Visit Provider Internal Medicine
DX: E78.2 Mixed hyperlipidemia (principal); N18.31 Chronic kidney disease, stage 3a; M10.079 Idiopathic gout, unspecified ankle and foot; I12.9 Hypertensive chronic kidney disease with stage 1 through stage 4 chronic kidney disease, or unspecified chronic kidney disease
CPT/HCPCS: 36415; 80053; 80061; 84550

== ENCOUNTER 2024-12-16 06:44 | Inpatient (IN) | payer MEDICARE, BC, SELFPAY ==
[2024-12-16] VITALS (16 sets, daily range): BP systolic 117–140; BP diastolic 76–89; PULSE 54–121; RESP 16–26; TEMP 35.9–36.6; O2SAT 90–97; BMI 25.8; BMI 25.5
--- NOTE | 2024-12-16 06:50 | DI.RAD.S_ITS ---
PROCEDURE: XR CHEST 2V INDICATIONS: cough, dyspnea TECHNIQUE: 2 views of the chest were acquired. COMPARISON: None. FINDINGS: Surgical changes and devices: None. Lungs and pleura: Small bilateral pleural effusions with bibasilar atelectasis or consolidations. Mild bilateral interstitial prominence. Mediastinum: Cardiac silhouette is enlarged. Bones and chest wall: No suspicious bony abnormalities. Soft tissues appear unremarkable. IMPRESSION: Bilateral interstitial prominence with small pleural effusions and bibasilar atelectasis or consolidations. Findings most likely related to pulmonary edema/congestive heart failure. Mild cardiomegaly. There is no significant discrepancy when compared to the overnight preliminary report. Approved by: Bradley Harrison M.D. on 12/16/2024 at 8:38
--- NOTE | 2024-12-16 06:55 | PC.NURSE ---
Pt to imaging via wheel chair with civil technician.
[2024-12-16 07:04] LABS: Add Manual Diff / Slide Review NO; Basophils Absolute Auto 100 /uL (0-100); Basophils Percent Auto 1.1 % (0-2); Eosinophils Absolute Auto 100 /uL (0-450); Eosinophils Percent Auto 1.5 % (2-4); Hematocrit 41.2 % (41-53); Hemoglobin 13.6 g/dL (13.5-17.5); Lymphocytes Absolute Auto 900 /uL (1100-4500); Lymphocytes Percent Auto 14.6 % (25-40); Mean Corpuscular HGB Conc 33.1 % (30-36); Mean Corpuscular Hemoglobin 30.2 PG (26-34); Mean Corpuscular Volume 91.2 fL (80-100); Monocytes Absolute Auto 400 /uL (0-900); Monocytes Percent Auto 6.4 % (3-14); Neutrophils Absolute Auto 4600 /uL (1500-7000); Neutrophils Percent Auto 76.4 % (50-75); Platelet Count 135 X10^3/uL (150-400); Red Blood Cell Count 4.52 X10^6/uL (4.5-5.9); Red Cell Distribution Width 15.5 % (11.6-14.8); White Blood Cell Count 6.1 X10^3/uL (4.5-11.0)
--- NOTE | 2024-12-16 07:09 | ED_ITS ---
HPI - General Adult General Chief complaint: Shortness of Breath/Dyspnea Stated complaint: Possible Pneumonia Time Seen by Provider: 12/16/24 06:50 Source: patient Mode of arrival: Ambulatory History of Present Illness HPI narrative: 74-year-old male with history of prior smoking, no chronic oxygen, history of hypertension, hyperlipidemia, renal insufficiency, gout, history of PID status post some kind of arterial leg procedure in the past, no venous clots recalled. He complains of 5 days of increasing shortness of breath, does not admit to any coughing, no leg pain or swelling symptoms. Denies chest pain. Denies history of heart vessel problems. No history of blood clots to the lungs known. He has not feel feverish. No abdominal pain, nausea, vomiting, diarrhea. No frequency or painful urination. No flank pain. No injury trauma new activities. Related Data Home Medications Medication Instructions Recorded Confirmed ASCORBIC ACID (VITAMIN C) 500 mg PO Q DAY ##0 12/24/11 11/16/24 VITAMIN E (#CENTRUM 400 iu PO Q DAY ##0 12/24/11 11/16/24 SINGLES-VITAMIN E) [FOLIC ACID] Q DAY ##0 12/24/11 11/16/24 aspirin 81 mg tablet,delayed 81 mg PO DAILY 01/21/24 11/16/24 release (Adult Aspirin Regimen) magnesium oxide 500 mg capsule 500 mg PO DAILY 01/21/24 11/16/24 vit C 50 mg-E 15 unit-zinc cit 4.5 2 tab PO DAILY 01/21/24 11/16/24 mg-lutein 2.5 mg-zeaxan chew tablet ([facility]) zinc acetate 50 mg (zinc) capsule 50 mg PO DAILY 01/21/24 11/16/24 (Galzin) Previous Rx's Medication Instructions Recorded tadalafil 20 mg tablet (Cialis) See Rx Instructions PO QDAYP PRN 11/11/23 erectile dysfunction #60 tabs tamsulosin 0.4 mg capsule (Flomax) 0.4 mg PO DAILY #90 caps 01/21/24 hydrochlorothiazide 25 mg tablet 25 mg PO DAILY #90 tabs 02/10/24 atorvastatin 10 mg tablet (Lipitor) 10 mg PO QDAY #90 tabs 09/06/24 allopurinol 300 mg tablet 300 mg PO DAILY #90 tabs 11/19/24 lisinopril 40 mg tablet See Rx Instructions .Route 11/19/24 .COMPLEX #90 tabs Allergies Allergy/AdvReac Type Severity Reaction Status Date / Time ibuprofen [IBUPROFEN] Allergy Mild Verified 11/16/24 15:24 peanut [PEANUT] Allergy Mild Verified 11/16/24 15:24 cedarwood [CEDARWOOD] Allergy Unknown difficulty Verified 11/16/24 15:24 breathing rosuvastatin [From CRESTOR] AdvReac Intermediate leg cramps Verified 11/16/24 15:24 Patient History Medical History History of urinary retention Elevated PSA Hx of skin cancer, basal cell BPH w urinary obs/LUTS COVID-19 Chronic renal failure, stage 3a Erectile dysfunction Peripheral arterial disease Hayfever Skin cancer (1998) Idiopathic gout involving toe (12/18/15) Essential hypertension (07/20/15) Mixed hyperlipidemia Surgical History Hx of circumcision History of back surgery Status post arthroscopy (2009) Status post hernia repair (03/2000) Status post hernia repair (03/1999) Status post arthroscopy (2002) Family History Father Fam hx-ischem heart disease Oral cancer Cancer Coronary artery disease Hearing impairment High cholesterol Hypertension Mother Age: 95 Family history of breast cancer in female Diabetes mellitus Hypertension High cholesterol Cancer Coronary artery disease Hearing impairment Sister No problems noted. Sister No problems noted. Social History marital status: number of children: 1 household members: spouse lives independently: Yes caregiver/support person: No housing: house pets and animals: Yes education level: high school occupational status: other (Retired) Previous occupational history: [employer]: [place]anda[place] travel history: recent ([place], [place]) leisure activities: art ([place]) and other (Building a [employer] Smoking Status: Former smoker Tobacco: How many years used: 50 (40 years every day, 10 years on and off.) Smokeless tobacco user: other (Cigarettes) quit status: has quit before second hand exposure: No alcohol intake: former substance use type: does not use caffeine: Yes Type(s) of exercise: aerobic Smoking Status: Former smoker Exam Narrative Exam Narrative: GENERAL: Well-developed patient, in mild distress. HEAD: Atraumatic. Normocephalic. EYES: Pupils equal round and reactive. Extraocular motions intact. No scleral icterus. No injection or drainage. ENT: Nose without bleeding, purulent drainage. Throat without erythema, tonsillar hypertrophy or exudate. Airway patent. NECK: Trachea midline. Non tender CARDIOVASCULAR: Fast rate regular rhythm, without murmurs, gallops, or rubs. RESPIRATORY: Bibasilar crackles, speaks in full sentences, no retractions intercostal or suprasternal. GASTROINTESTINAL: Abdomen soft, non-tender, nondistended. EXTREMITIES: No edema or joint tenderness. BACK: Nontender without deformity or crepitance. No flank tenderness. NEURO: AOx3. Motor functions grossly nonfocal SKIN: No rash or erythema of visible areas Initial Vital Signs Initial Vital Signs: Vital Signs Temperature 96.9 F L 12/16/24 06:49 Pulse Rate 121 H 12/16/24 06:49 Respiratory Rate 26 H 12/16/24 06:49 Blood Pressure 133/81 12/16/24 06:49 Pulse Oximetry 90 L 12/16/24 06:49 Oxygen Delivery Method Room Air 12/16/24 06:49 Course Orders Ordered: ED Orders 12/16/24 06:50 XR chest 2V Stat 12/16/24 06:53 CBC Auto Diff [Complete Blood Count AUTO DIFF] Stat CMP [Comprehensive Metabolic Panel] Stat 12/16/24 06:55 BNP [NT-proBNP (BNP-Adult 18+)] Stat Lactate (Lactic Acid) Stat Prothrombin Time INR Stat Troponin I Stat 12/16/24 06:57 Covid-19 + FLU A/B + RSV - PCR Stat 12/16/24 07:15 Blood Culture Stat 12/16/24 07:18 EKG-12 Lead Stat 12/16/24 07:21 CT angio chest PE protocol Stat Acetaminophen (Acetaminophen 325 Mg Tablet) 650 mg PO Q6H PRN PRN Reason: Fever/Mild Pain (1-3) Aspirin (Aspirin Ec 81 Mg Tablet) 81 mg PO DAILY [facility]LEY Enoxaparin Sodium (Enoxaparin 40 Mg/0.4 Ml Syringe) 40 mg SUBCUT DAILY [facility] Furosemide (Furosemide 20 Mg/2 Ml Vial) 40 mg IV Q8H KINGSLEY Last Admin: 12/16/24 09:36 Dose: Not Given Documented By: MELI Losartan Potassium (Losartan 25 Mg Tablet) 25 mg PO DAILY [facility] Metoprolol Succinate (Metoprolol Er 25 Mg Tablet) 12.5 mg PO DAILY [facility] Naloxone HCl (Naloxone 0.4 Mg/Ml Vial) 0.2 mg IV Q2MIN PRN PRN Reason: Opiate Reversal Ondansetron HCl (Ondansetron 4 Mg Odt) 4 mg PO Q8HR PRN PRN Reason: Nausea And Vomiting Potassium Chloride (Potassium Chloride 20 Meq Tab) 20 meq PO BIDWM KINGSLEY Discontinued Medications Doxycycline Hyclate (Doxycycline Hyclate 100 Mg Tablet) 100 mg PO NOW ONE Stop: 12/16/24 07:17 Last Admin: 12/16/24 07:23 Dose: 100 mg Documented By: TORITO Furosemide (Furosemide 40 Mg/4 Ml Vial) 40 mg IV NOW ONE Stop: 12/16/24 07:59 Last Admin: 12/16/24 09:13 Dose: 40 mg Documented By: MELI Ceftriaxone Sodium 1,000 mg/ (Sodium Chloride) 100 mls @ 200 mls/hr IV NOW ONE Stop: 12/16/24 07:17 Last Infusion: 12/16/24 09:04 Dose: Infused Documented By: Admin: 12/16/24 07:23 Dose: 200 mls/hr Documented By: TORITO Sodium Chloride (Normal Saline 0.9%) 1,000 mls @ 1,000 mls/hr IV BOLUS ONE Stop: 12/16/24 08:35 Last Admin: 12/16/24 09:04 Dose: Not Given Documented By: MELI Vital Signs Vital signs: Vital Signs - 8 hr 12/16/24 06:49 12/16/24 06:55 12/16/24 07:01 Temperature 96.9 F L Pulse Rate 121 H 113 H 115 H Respiratory Rate 26 H Blood Pressure 133/81 Pulse Oximetry 90 L 94 97 Oxygen Delivery Method Room Air 12/16/24 07:25 12/16/24 07:25 12/16/24 07:30 Temperature Pulse Rate 111 H 111 H Respiratory Rate Blood Pressure 136/86 Pulse Oximetry 92 92 Oxygen Delivery Method 12/16/24 07:30 12/16/24 08:34 12/16/24 08:42 Temperature Pulse Rate 107 H 54 L Respiratory Rate Blood Pressure 135/82 Pulse Oximetry 97 Oxygen Delivery Method 12/16/24 08:42 12/16/24 09:00 12/16/24 09:00 Temperature Pulse Rate 105 H Respiratory Rate Blood Pressure 118/79 123/83 Pulse Oximetry 94 Oxygen Delivery Method Room Air Medical Decision Making Lab Data Lab results reviewed: Yes I reviewed the patient's lab results. Lab results narrative: White blood cell count 6100, hemoglobin 13.6, platelets adequate. Glucose 169. BUN 32 with creatinine 107, normal GFR noted. Sodium 139, potassium 4.3, serum CO2 decreased 16. Liver functions unremarkable. Troponin 0.03 measurable but low. BNP 3950 elevated. Influenza negative, COVID negative, RSV negative. 12/16/24 06:53 12/16/24 06:53 Labs: Lab Results 12/16/24 12/16/24 12/16/24 Range/Units 06:53 06:55 06:57 WBC 6.1 (4.5-11.0) X10^3/uL RBC 4.52 (4.5-5.9) X10^6/uL Hgb 13.6 (13.5-17.5) g/dL Hct 41.2 (41-53) % MCV 91.2 (80-100) fL MCH 30.2 (26-34) PG MCHC 33.1 (30-36) % RDW 15.5 H (11.6-14.8) % Plt Count 135 L (150-400) X10^3/uL Neut % (Auto) 76.4 H (50-75) % Lymph % (Auto) 14.6 L (25-40) % [place] % (Auto) 6.4 (3-14) % Eos % (Auto) 1.5 L (2-4) % Baso % (Auto) 1.1 (0-2) % Neut # (Auto) 4600 (9753-5508) /uL Lymph # (Auto) 900 L (4827-0097) /uL [place] # (Auto) 400 (0-900) /uL Eos # (Auto) 100 (0-450) /uL Baso # (Auto) 100 (0-100) /uL PT 13.6 H (9.4-12.5) SECONDS INR 1.2 (0.9-1.3) Sodium 139 (137-145) mmol/L Potassium 4.3 (3.4-5.1) mmol/L Chloride 107 (98-107) mmol/L Carbon Dioxide 16 L (22-32) mmol/L BUN 32 H (9-20) mg/dL Creatinine 1.07 (0.66-1.25) mg/dL Estimated GFR > 60 (>60) mL/min BUN/Creatinine Ratio 29.9 H (6-22) Glucose 169 H (80-110) mg/dL Lactate 1.3 (0.7-2.1) mmol/L Calcium 9.9 (8.4-10.2) mg/dL Total Bilirubin 1.0 (0.2-1.3) mg/dL AST 38 (17-59) IU/L ALT 28 (<50) IU/L Alkaline Phosphatase 93 (38-126) U/L Troponin I 0.030 (0.01-0.034) ng/mL NT-Pro-B Natriuret Pep 3950 H (<450) pg/mL Total Protein 7.3 (6.3-8.2) g/dL Albumin 4.5 (3.5-5.0) g/dL Globulin 2.8 (1.7-4.1) g/dL Albumin/Globulin Ratio 1.6 (1.0-2.8) SARS-CoV-2 (PCR) Negative (Negative) Influenza A (RT-PCR) Flu a negative (NEGATIVE) Influenza B (RT-PCR) Flu b negative (NEGATIVE) RSV (PCR) Negative (Negative) Imaging Data CT angiogram chest: Radiologist's Impression: [address] [address] [address] Scan Report Signed Patient: Jonas Rebollar MR#: [id number] : 1950 Acct:[id number] Age/Sex: 74 / M Date of Service: 12/16/24 Loc: ED Accession Number: [id number] Procedure: CT angio chest PE protocol Ordering Provider: Jony Gonzalez MD PROCEDURE: CT ANGIO CHEST PE PROTOCOL INDICATIONS: dyspnea, tachycardia TECHNIQUE: After the administration of intravenous contrast, 2 mm thick sections acquired from the pulmonary apices to the posterior costophrenic angles. 3-dimensional maximum intensity projection (MIP) coronal and sagittal reformats were then acquired through the thorax. For radiation dose reduction, the following was used: automated exposure control, adjustment of mA and/or kV according to patient size. COMPARISON: None. FINDINGS: Image quality: Diagnostic. Pulmonary arteries: Pulmonary arteries are normal in size, and demonstrate no intraluminal filling defects to suggest central pulmonary embolism. Lower Neck: No enlarged lymph nodes. Thyroid: No thyroid nodules which require sonographic follow up, per consensus guidelines. Axillae: No enlarged lymph nodes. Chest Wall: Unremarkable. Bones: Unremarkable. Lungs and Pleura: Interstitial and subtle alveolar pulmonary edema. Large bilateral pleural effusions. Bibasilar compressive atelectasis. Heart: Left ventricle appears somewhat enlarged. Left atrium is somewhat enlarged. Dense extensive left main coronary artery calcifications and proximal LAD calcifications. No pericardial effusion. Thoracic Vessels: No aortic aneurysm. There is a degree of narrowing of the bilateral proximal subclavian arteries. The extent of the stenosis is not identified. Mediastinum and Melania: No enlarged lymph nodes. Esophagus: No wall thickening. No hiatal hernia. Upper Abdomen: Visualized upper abdomen solid organs and bowel loops appear normal. IMPRESSION: 1. No acute pulmonary emboli. 2. Congestive heart failure. 3. Advanced coronary atherosclerosis involving the left main coronary artery and proximal LAD. 4. Enlargement of the left ventricle and left atrium. 5. 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 Dictated by: Omega Roblero M.D. on 12/16/2024 at 8:22 Approved by: Omega Roblero M.D. on 12/16/2024 at 8:26 ECG Data Attestation: I personally reviewed and interpreted this ECG as follows: Interpretation: Sinus tachycardia with rate 109. ST segment upsloping elevation anterior leads. Similar to study 12/09/2023. NH 192, QRS 98, QTC 457. MDM Narrative Medical decision making narrative: 74-year-old male with history of smoking, 5 days duration increasing shortness of breath, sinus tachycardia on monitor at triage, bibasilar crackles, no peripheral edema. Possible pneumonia versus CHF versus other. No current oxygen requirement but tachycardia with bibasilar crackles. Consider sepsis, lactate also ordered. Chest x-ray shows [id number]-left bibasilar infiltrates, possible right- sided pleural effusion. ED wet read, awaiting radiology report. Blood cultures, lactate is still pending. IV ceftriaxone and PO doxycycline started for community-acquired pneumonia coverage. Lactate normal. EKG shows anterior ST segment elevation, looks similar to prior 2023 study. Troponin 0.03 measurable but quite low. History by chart of renal insufficiency stage IIIA, however creatinine today normal, GFR greater than 60 today. CTA chest ordered. IVF bolus. 729, case discussed with hospitalist Dr Deras who happened to call into the emergency department about another patient, CTA pending on this patient, has bibasilar infiltrates and tachycardia, suspected pneumonia by chest x-ray, antibiotics initiated, consider admission. We will update once CTA results available. Chest x-ray report. Impression: ?Moderate right [and] mild left pleural parenchymal disease. Interstitial thickening. Findings are either cardiogenic or pneumonic.? See teleradiology report. BNP 3950 elevated, interstitial changes noted on chest x-ray, we will add IV Lasix, we will not give any further fluid bolus. Initial labs studies: White blood cell count 6100, hemoglobin 13.6, platelets adequate. Glucose 169. BUN 32 with creatinine 107, normal GFR noted. Sodium 139, potassium 4.3, serum CO2 decreased 16. Liver functions unremarkable. Troponin 0.03 measurable but low. BNP 3950 elevated. Influenza negative, COVID negative, RSV negative. CT angiogram chest, suggestive of fluid overload, no mention of any infiltrates. No PE noted. See radiology report. In-house chest radiograph also now read, suggestive of more fluid overload changes than lung infiltrates. See radiology report. Advised admission for further evaluation new diagnosis congestive heart failure, in setting of tachycardia. We will hold further fluids. IV Lasix 40mg given. Patient agreeable to admission, sitting upright unable to lie back due to shortness of breath. Consider echocardiogram and further workup as an inpatient. We will contact hospitalist. 914, case discussed with hospitalist Dr. Deras who accepts patient for admission to inpatient Critical Care Time Critical Care Time Critical Care Time: Yes Total Critical Care Time: 35 Attestation: The high probability of a clinically significant, sudden or life threatening deterioration of the [cardiopulmonary] system(s) required my full and direct attention, intervention and personal management. The aggregate critical care time was [35] minutes. This time is in addition to time spent performing reported procedures but includes the following: [x] Data Review and interpretation [x] Patient assessment and monitoring of vital signs [x] Documentation [x] Medication orders and management Discharge Plan Departure Clinical Impression: Acute dyspnea, Congestive heart failure, Tachycardia, Pneumonia Admit Date/Time: 12/16/24 09:07 Admit Provider: Efrain Deras
[2024-12-16 07:17] LABS: Alanine Aminotransferase 28 IU/L (<50); Albumin 4.5 g/dL (3.5-5.0); Albumin Globulin Ratio 1.6 (1.0-2.8); Alkaline Phosphatase 93 U/L (38-126); Aspartate Aminotransferase 38 IU/L (17-59); BUN Creatinine Ratio 29.9 (6-22); Blood Urea Nitrogen 32 mg/dL (9-20); Calcium 9.9 mg/dL (8.4-10.2); Carbon Dioxide 16 mmol/L (22-32); Chloride 107 mmol/L (98-107); Estimated Glomerular Filt Rate > 60 mL/min (>60); Globulin 2.8 g/dL (1.7-4.1); Glucose 169 mg/dL (80-110); HEMOLYSIS 19 (0-50); Potassium 4.3 mmol/L (3.4-5.1); Sodium 139 mmol/L (137-145); Total Protein 7.3 g/dL (6.3-8.2)
[2024-12-16 07:18] LABS: Lactate (Lactic Acid) 1.3 mmol/L (0.7-2.1)
--- NOTE | 2024-12-16 07:21 | DI.CT.S_ITS ---
PROCEDURE: CT ANGIO CHEST PE PROTOCOL INDICATIONS: dyspnea, tachycardia TECHNIQUE: After the administration of intravenous contrast, 2 mm thick sections acquired from the pulmonary apices to the posterior costophrenic angles. 3-dimensional maximum intensity projection (MIP) coronal and sagittal reformats were then acquired through the thorax. For radiation dose reduction, the following was used: automated exposure control, adjustment of mA and/or kV according to patient size. COMPARISON: None. FINDINGS: Image quality: Diagnostic. Pulmonary arteries: Pulmonary arteries are normal in size, and demonstrate no intraluminal filling defects to suggest central pulmonary embolism. Lower Neck: No enlarged lymph nodes. Thyroid: No thyroid nodules which require sonographic follow up, per consensus guidelines. Axillae: No enlarged lymph nodes. Chest Wall: Unremarkable. Bones: Unremarkable. Lungs and Pleura: Interstitial and subtle alveolar pulmonary edema. Large bilateral pleural effusions. Bibasilar compressive atelectasis. Heart: Left ventricle appears somewhat enlarged. Left atrium is somewhat enlarged. Dense extensive left main coronary artery calcifications and proximal LAD calcifications. No pericardial effusion. Thoracic Vessels: No aortic aneurysm. There is a degree of narrowing of the bilateral proximal subclavian arteries. The extent of the stenosis is not identified. Mediastinum and Melania: No enlarged lymph nodes. Esophagus: No wall thickening. No hiatal hernia. Upper Abdomen: Visualized upper abdomen solid organs and bowel loops appear normal. IMPRESSION: 1. No acute pulmonary emboli. 2. Congestive heart failure. 3. Advanced coronary atherosclerosis involving the left main coronary artery and proximal LAD. 4. Enlargement of the left ventricle and left atrium. 5. 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 Dictated by: Omega Roblero M.D. on 12/16/2024 at 8:22 Approved by: Omega Roblero M.D. on 12/16/2024 at 8:26
[2024-12-16] MEDS: cefTRIAXone 1,000 MG in SODIUM CHLORIDE 0.9% 100 ML 200 MG IV (07:23)
[2024-12-16] MEDS: DOXYCYCLINE HYCLATE 100 MG TABLET PO (07:23)
[2024-12-16 07:32] LABS: INR 1.2 (0.9-1.3); Prothrombin Time 13.6 SECONDS (9.4-12.5)
--- NOTE | 2024-12-16 07:37 | EKG_ITS ---
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
[2024-12-16 07:39] LABS: COVID-19 CEPHEID 4-PLEX PCR Negative (Negative); Influenza A - CEPHEID Flu A NEGATIVE (NEGATIVE); Influenza B - CEPHEID Flu B NEGATIVE (NEGATIVE); Respiratory Syncytial Virus Negative (Negative)
[2024-12-16 07:52] LABS: NT-proBNP (BNP-Adult 18+) 3950 pg/mL (<450)
[2024-12-16] MEDS: FUROSEMIDE 40 MG/4 ML VIAL IV (09:13)
--- NOTE | 2024-12-16 09:15 | DI.ECHO.S_ITS ---
[place] [facility]+ [facility] : : [address] : : [place] : : [id number] : : Phone: [phone] Echocardiogram Report + + :Name: ROSALIA GIRARD Study Date: 12/16/2024 Height: 67 in : :[facility] ReadingLocation: Weight: 165 lb : : Gender: Male BSA: 1.9 m2 : :: 1950 Age: 74 yrs BP: 135/82 mmHg: :Reason For Study: CONGESTIVE HEART FAILURE : :Ordering Physician: CONSUELO : :MICHELLE Performed By: Tanika Morales : :Referring: MICHELLE CORDERO : + + Interpretation Summary The left ventricle is mildly dilated. The ejection fraction is estimated to be 10-15%. Diastolic function could not be accurately assessed due to tachycardia. The left atrium is mildly dilated. The right ventricle is normal in size and function. There is moderate mitral regurgitation. Pulmonary artery pressures cannot be estimated because of the lack of a measurable TR jet velocity but the IVC suggests a CVP of around 8 mmHg. Procedure: A two-dimensional transthoracic echocardiogram with color flow and Doppler was performed. The study quality was technically adequate. There is no prior echocardiogram noted for this patient. The patient was in sinus tachycardia with heart rates between 94-110 bpm during the exam. Left Ventricle: The left ventricle is mildly dilated. The estimated left ventricular end diastolic volume is 161 ml. There is normal left ventricular wall thickness. The ejection fraction is estimated to be 10-15%. There is severe global hypokinesis of the left ventricle. Diastolic function could not be accurately assessed due to tachycardia. Right Ventricle: The right ventricle is normal in size and function. Atria: The left atrium is mildly dilated. Right atrial size is normal. There is no Doppler evidence for an interatrial shunt. Mitral Valve: The mitral valve leaflets appear mildly thickened, but open well. The mitral valve chordae are thickened and/or calcified. There is moderate mitral regurgitation. Aortic Valve: The aortic valve is trileaflet. The aortic valve opens well. There is no aortic valve stenosis. No aortic regurgitation is present. Tricuspid Valve: The tricuspid valve leaflets are thin and pliable. There is trace tricuspid regurgitation. Pulmonary artery pressures cannot be estimated because of the lack of a measurable TR jet velocity but the IVC suggests a CVP of around 8 mmHg. Pulmonic Valve: The pulmonic valve leaflets are thin and pliable; valve motion is normal. There is mild pulmonic regurgitation. Great Vessels: The aortic root is normal size. The dimensions of the ascending aorta are normal. The IVC is dilated (diameter is greater than 2.1 cm) yet it collapses greater than 50% with a sniff. This suggests a right atrial pressure of 8 mm Hg. Pericardium/ Pleura There is a trivial pericardial effusion noted. There is a large left-sided pleural effusion. MMode/2D Measurements & Calculations LVIDd: 5.9 cm LVOT diam: 2.1 cm LVIDs: 5.5 cm Ao root diam: 3.7 cm FS: 6.6 % asc Aorta Diam: 3.0 cm EPSS: 2.1 cm Ao Arch Diam (Prox Trans): 2.4 cm IVSd: 0.83 cm LVPWd: 0.83 cm LV mayen. diameter/BSA (cm/m^2): 3.2 LV sys. diameter/BSA (cm/m^2): 3.0 LA A2 area: 22.4 cm2 RA long axis: 4.5 cm LA A4 area: 20.2 cm2 RA area: 15.0 cm2 LA length (vol): 5.3 cm RA vol: 42.2 ml LA vol: 72.6 ml RA : 22.6 ml/m2 LA vol index: 39.0 ml/m2 IVC diam: 2.3 cm RVD1 (basal): 3.6 cm RVD2 (mid): 2.6 cm TAPSE: 1.7 cm Doppler Measurements & Calculations Ao V2 max: 98.2 cm/sec LVOT Max Ruperto: 59.6 cm/sec Ao V2 mean: 62.7 cm/sec LV V1 max P.4 mmHg Ao max P.9 mmHg LV V1 VTI: 8.6 cm Ao mean P.8 mmHg RAIN(I,D): 1.8 cm2 Ao V2 VTI: 16.5 cm RAIN(V,D): 2.1 cm2 sev ratio: 0.52 RAIN indexed to BSA (cm^2/m^2): 0.96 MV E max ruperto: 107.7 cm/sec PA V2 max: 90.1 cm/sec MV A max ruperto: 1.5 cm/sec PA V2 mean: 64.6 cm/sec MV E/A: 72.6 PA mean P.8 mmHg Med Peak E' Ruperto: 5.7 cm/sec PA pr(Accel): 40.5 mmHg E/E' med: 19.0 Lat Peak E' Ruperto: 4.6 cm/sec E/E' lat: 23.4 E/e' average: 21.2 MV dec time: 0.14 sec MR ERO: 0.16 cm2 MR PISA: 2.6 cm2 SV(LVOT): 29.6 ml MR flow rate: 77.7 cm3/sec MR PISA radius: 0.64 cm Reading Physician:04:31 PM
[2024-12-16 10:33] LABS: Cholesterol 132 mg/dL (140-199); HDL Cholesterol 34 mg/dL (40-60); LDL Cholesterol Calculated 75 mg/dL (<100); Triglycerides 115 mg/dL (35-150)
[2024-12-16 11:05] LABS: Thyroid Stimulating Hormone 0.416 uIU/mL (0.47-4.68)
--- NOTE | 2024-12-16 11:31 | CM.DANOTE ---
ED DCP Assessment Note: Pt is a 74yo male, resident of [place], is admitted for pneumonia, CHF, dyspnea. Pt lives in a house with his , Nano. Pt's Primary Care Provider is Dr. Al Johnston and insurance is Medicare and [employer]. Reviewed chart and discussed with multidisciplinary team pt's medical status and initial discharge needs. Per RN, pt to obtain echocardiogram on acute care floor. ED CERTIFIED PERSONAL CHEF met w/patient at bedside; introduced self and role. Patient was found in bed, alert and oriented, cooperative with assessment. Pt confirmed living situation and good support in . Pt expressed preference in discharge home when medically cleared. Pt has no previous hx of SNF Rehab or Home health. Plan: Admission to acute care floor, plan of care evolving. Anticipating dc home with support when cleared. CM team will follow closely for coordination of discharge plans. [facility] Discharge Planning/Care Management CM Discharge Assessment Start: 12/16/24 11:25 Freq: Status: Active Protocol: Document 12/16/24 11:25 MW (Rec: 12/16/24 11:30 MW [id number]) Discharge Planning Assessment Assigned Trolley Operator SHANE Montes DPOA/Assigned Designee Name Candelaria Mcgill Contact Information [phone] Advance Directives? No History Provided By Patient,Medical Record Has Patient been admitted in last 30 No days? Prior Living Arrangements House Comment [facility] Members spouse Type of transporation used prior to Drives own vehicle admit Comment [place] self to ED Independent with ADL's Yes Is patient alert and oriented? Yes Caregiver for Another No Barriers to Discharge No Discharge Plan Home Transportation Arrangement Dro[place] self to ED Referrals Initiated None needed Review Status In Process Please Provide Date Initial DC 12/16/24 Assessment Was Performed Next Review Type Continued Stay Review
[2024-12-16] MEDS: ENOXAPARIN 40 MG/0.4 ML SYRINGE SUBCUT (13:42)
--- NOTE | 2024-12-16 15:39 | PM.HP.1 ---
History of Present Illness History of Present Illness Date Patient Seen: 12/16/24 Chief complaint: Possible Pneumonia Narrative: Chief complaint: Dyspnea orthopnea secondary to previously undiagnosed congestive heart failure History of present illness: 74-year-old male with history of peripheral arterial disease status post revascularization of his lower extremities with 5 days of progressive dyspnea on exertion to shortness of breath at rest orthopnea and abdominal distention Patient presented to the emergency department. Findings in the emergency department: Dyspneic patient with mildly labored respirations BUN 32 creatinine 1 BNP 3950 troponin is negative Chest x-ray shows borderline enlarged cardiac silhouette with bilateral pleural effusions right greater than left cephalization of vessels but no focal infiltrates CT angiography does not show PE but does show calcification of coronary vessels Review of systems: No fever chills weight loss No chest pains or palpitations new line No abdominal pain nausea vomiting diarrhea new line No urinary symptoms No paresis or paresthesias Physical exam: General mildly labored respirations HEENT unremarkable new line 3 cm JVD new line Heart rate rhythm regular heart sounds distant with a summation gallop loudest at the apex Abdomen distended no anasarca Trace edema of ankles bilaterally EKG shows sinus rhythm with voltage criteria and axis deviation Assessment and plan: Acute congestive heart failure as evidenced by pulmonary edema orthopnea pleural effusions elevated troponin and summation gallop on examination: Admit for treatment inpatient Acute diuresis Beta-lizandro ARB aspirin Echocardiogram History of peripheral artery disease and possible coronary artery disease Aspirin beta-lizandro and statin therapy DVT prophylaxis with enoxaparin Full code blue Greater than 55 minutes was involved in this patient discussion with other physicians reviewing images and records [facility] Medical History History of urinary retention Elevated PSA Hx of skin cancer, basal cell BPH w urinary obs/LUTS COVID-19 Chronic renal failure, stage 3a Erectile dysfunction Peripheral arterial disease Hayfever Skin cancer (1998) Idiopathic gout involving toe (12/18/15) Essential hypertension (07/20/15) Mixed hyperlipidemia Surgical History Hx of circumcision History of back surgery Status post arthroscopy (2009) Status post hernia repair (03/2000) Status post hernia repair (03/1999) Status post arthroscopy (2002) Family History Father Fam hx-ischem heart disease Oral cancer Cancer Coronary artery disease Hearing impairment High cholesterol Hypertension Mother Age: 95 Family history of breast cancer in female Diabetes mellitus Hypertension High cholesterol Cancer Coronary artery disease Hearing impairment Sister No problems noted. Sister No problems noted. Social History marital status: number of children: 1 household members: spouse lives independently: Yes caregiver/support person: No housing: house pets and animals: Yes education level: high school occupational status: other (Retired) Previous occupational history: [employer] megha/roman catholic: Evangelical travel history: recent ([place], [employer]) leisure activities: art ([place]) and other (Building a [employer].) Smoking Status: Former smoker Tobacco: How many years used: 50 (40 years every day, 10 years on and off.) Smokeless tobacco user: other (Cigarettes) quit status: has quit before second hand exposure: No alcohol intake: former substance use type: does not use caffeine: Yes Type(s) of exercise: aerobic Meds Home Medications and Allergies Home Medications Medication Instructions Recorded Confirmed Type ASCORBIC ACID (VITAMIN C) 500 mg PO Q DAY ##0 12/24/11 12/16/24 History VITAMIN E (#CENTRUM 400 iu PO Q DAY ##0 12/24/11 12/16/24 History SINGLES-VITAMIN E) [FOLIC ACID] 1 tab PO Q DAY ##0 12/24/11 12/16/24 History tadalafil 20 mg tablet (Cialis) See Rx Instructions PO QDAYP PRN 11/11/23 12/16/24 Rx erectile dysfunction #60 tabs aspirin 81 mg tablet,delayed 81 mg PO DAILY 01/21/24 12/16/24 History release (Adult Aspirin Regimen) magnesium oxide 500 mg capsule 500 mg PO DAILY 01/21/24 12/16/24 History tamsulosin 0.4 mg capsule (Flomax) 0.4 mg PO DAILY #90 caps 01/21/24 12/16/24 Rx vit C 50 mg-E 15 unit-zinc cit 4.5 2 tab PO DAILY 01/21/24 12/16/24 History mg-lutein 2.5 mg-zeaxan chew tablet (Ocuvite Eye Health) zinc acetate 50 mg (zinc) capsule 50 mg PO DAILY 01/21/24 12/16/24 History (Galzin) atorvastatin 10 mg tablet (Lipitor) 10 mg PO QDAY #90 tabs 09/06/24 12/16/24 Rx allopurinol 300 mg tablet 300 mg PO DAILY #90 tabs 11/19/24 12/16/24 Rx Allergies Allergy/AdvReac Type Severity Reaction Status Date / Time ibuprofen [IBUPROFEN] Allergy Mild Verified 12/16/24 11:29 peanut [PEANUT] Allergy Mild Verified 12/16/24 11:29 cedarwood [CEDARWOOD] Allergy Unknown difficulty Verified 12/16/24 11:29 breathing rosuvastatin [From CRESTOR] AdvReac Intermediate leg cramps Verified 12/16/24 11:29 Exam Vital Signs (past 8 hours): - 12/16/24 08:34 12/16/24 08:42 12/16/24 08:42 Pulse Rate 107 H 54 L Respiratory Rate Blood Pressure 118/79 Pulse Oximetry 97 Oxygen Delivery Method 12/16/24 09:00 12/16/24 09:00 12/16/24 09:30 Pulse Rate 105 H Respiratory Rate Blood Pressure 123/83 117/76 Pulse Oximetry 94 Oxygen Delivery Method Room Air 12/16/24 09:30 12/16/24 10:00 12/16/24 10:00 Pulse Rate 106 H 106 H Respiratory Rate 20 Blood Pressure 130/83 Pulse Oximetry 95 95 Oxygen Delivery Method Room Air 12/16/24 10:30 12/16/24 10:30 12/16/24 11:00 Pulse Rate 101 H 110 H Respiratory Rate Blood Pressure 126/79 Pulse Oximetry 96 95 Oxygen Delivery Method 12/16/24 11:30 Pulse Rate 104 H Respiratory Rate 18 Blood Pressure 125/83 Pulse Oximetry 95 Oxygen Delivery Method Room Air Oxygen Delivery Method Room Air Objective Labs 12/16/24 06:53 12/16/24 06:53 Labs: Laboratory Results - last 24 hr 12/16/24 12/16/24 12/16/24 06:53 06:55 06:57 WBC 6.1 RBC 4.52 Hgb 13.6 Hct 41.2 MCV 91.2 MCH 30.2 MCHC 33.1 RDW 15.5 H Plt Count 135 L Neut % (Auto) 76.4 H Lymph % (Auto) 14.6 L [place] % (Auto) 6.4 Eos % (Auto) 1.5 L Baso % (Auto) 1.1 Neut # (Auto) 4600 Lymph # (Auto) 900 L [place] # (Auto) 400 Eos # (Auto) 100 Baso # (Auto) 100 PT 13.6 H INR 1.2 Sodium 139 Potassium 4.3 Chloride 107 Carbon Dioxide 16 L BUN 32 H Creatinine 1.07 Estimated GFR > 60 BUN/Creatinine Ratio 29.9 H Glucose 169 H Lactate 1.3 Calcium 9.9 Total Bilirubin 1.0 AST 38 ALT 28 Alkaline Phosphatase 93 Troponin I 0.030 NT-Pro-B Natriuret Pep 3950 H Total Protein 7.3 Albumin 4.5 Globulin 2.8 Albumin/Globulin Ratio 1.6 Triglycerides 115 Cholesterol 132 L LDL Cholesterol, Calc 75 HDL Cholesterol 34 L TSH 0.416 L SARS-CoV-2 (PCR) Negative Influenza A (RT-PCR) Flu a negative Influenza B (RT-PCR) Flu b negative RSV (PCR) Negative Assessment & Plan Time-Based Coding :: [TOTAL MINUTES] spent with patient and on the chart (including review of chart, obtaining history, exam, reviewing outside data, placing orders, documenting exam and treatment plan, and counseling patient) on [DATE]. Quality VTE Deep Vein Thrombosis/Pulmonary Embolism Present on Admission: No
[2024-12-16] MEDS: POTASSIUM CHLORIDE 20 MEQ TAB PO (16:58)
[2024-12-16] MEDS: FUROSEMIDE 20 MG/2 ML VIAL 40 MG IV (16:58)
--- NOTE | 2024-12-16 17:18 | P.DS_ITS ---
History of Present Illness History of Present Illness Date Patient Seen: 12/16/24 Date of Onset of Symptoms: 12/12/24 Chief complaint: Cardiomyopathy EF 10-15% Narrative: Chief complaint: Dyspnea orthopnea secondary to previously undiagnosed congestive heart failure History of present illness: 74-year-old male with history of peripheral arterial disease status post revascularization of his lower extremities with 5 days of progressive dyspnea on exertion to shortness of breath at rest orthopnea and abdominal distention Patient presented to the emergency department. Findings in the emergency department: Dyspneic patient with mildly labored respirations BUN 32 creatinine 1 BNP 3950 troponin is negative Chest x-ray shows borderline enlarged cardiac silhouette with bilateral pleural effusions right greater than left cephalization of vessels but no focal infiltrates CT angiography does not show PE but does show calcification of coronary vessels Review of systems: No fever chills weight loss No chest pains or palpitations new line No abdominal pain nausea vomiting diarrhea new line No urinary symptoms No paresis or paresthesias Physical exam: General mildly labored respirations HEENT unremarkable new line 3 cm JVD new line Heart rate rhythm regular heart sounds distant with a summation gallop loudest at the apex Abdomen distended no anasarca Trace edema of ankles bilaterally EKG shows sinus rhythm with voltage criteria and axis deviation Echocardiogram: The left ventricle is mildly dilated. The ejection fraction is estimated to be 10-15%. Diastolic function could not be accurately assessed due to tachycardia. The left atrium is mildly dilated. The right ventricle is normal in size and function. There is moderate mitral regurgitation. Pulmonary artery pressures cannot be estimated because of the lack of a measurable TR jet velocity but the IVC suggests a CVP of around 8 mmHg. Assessment and plan: Acute congestive heart failure as evidenced by pulmonary edema orthopnea pleural effusions elevated troponin and summation gallop on examination: Case discussed with Cardiology and recommendations was transfer to a tertiary center for ischemic and workup that might involve LVAD Admit for treatment inpatient Acute diuresis Beta-lizandro ARB aspirin Echocardiogram History of peripheral artery disease and possible coronary artery disease Aspirin beta-lizandro and statin therapy DVT prophylaxis with enoxaparin Full code blue Greater than 55 minutes was involved in this patient discussion with other physicians reviewing images and records Discharge Providers Provider Date of admission: 12/16/24 09:07 Discharge Date: 12/16/24 Primary care physician: Al Johnston MD Consults: 12/16/24 16:57 Consult to Cardiology Routine Comment: Consulting Provider: Karen Trotter Reason for consultation: Severe cardiomyopathy EF 10-15% new onset Has provider been notified: Yes Discharge provider: Efrain Deras MD Exam Vital Signs (past 8 hours): - 12/16/24 09:30 12/16/24 09:30 12/16/24 10:00 Temperature Pulse Rate 106 H 106 H Respiratory Rate 20 Blood Pressure 117/76 Pulse Oximetry 95 95 Oxygen Delivery Method Room Air Oxygen Flow Rate 12/16/24 10:00 12/16/24 10:30 12/16/24 10:30 Temperature Pulse Rate 101 H Respiratory Rate Blood Pressure 130/83 126/79 Pulse Oximetry 96 Oxygen Delivery Method Oxygen Flow Rate 12/16/24 11:00 12/16/24 11:30 12/16/24 11:45 Temperature 97.8 F Pulse Rate 110 H 104 H 114 H Respiratory Rate 18 16 Blood Pressure 125/83 134/81 Pulse Oximetry 95 95 96 Oxygen Delivery Method Room Air Oxygen Flow Rate 0 Oxygen Delivery Method Room Air Oxygen Flow Rate 0 Objective Labs 12/16/24 06:53 12/16/24 06:53 Labs: Laboratory Results - last 24 hr 12/16/24 12/16/24 12/16/24 06:53 06:55 06:57 WBC 6.1 RBC 4.52 Hgb 13.6 Hct 41.2 MCV 91.2 MCH 30.2 MCHC 33.1 RDW 15.5 H Plt Count 135 L Neut % (Auto) 76.4 H Lymph % (Auto) 14.6 L [place] % (Auto) 6.4 Eos % (Auto) 1.5 L Baso % (Auto) 1.1 Neut # (Auto) 4600 Lymph # (Auto) 900 L [place] # (Auto) 400 Eos # (Auto) 100 Baso # (Auto) 100 PT 13.6 H INR 1.2 Sodium 139 Potassium 4.3 Chloride 107 Carbon Dioxide 16 L BUN 32 H Creatinine 1.07 Estimated GFR > 60 BUN/Creatinine Ratio 29.9 H Glucose 169 H Lactate 1.3 Calcium 9.9 Total Bilirubin 1.0 AST 38 ALT 28 Alkaline Phosphatase 93 Troponin I 0.030 NT-Pro-B Natriuret Pep 3950 H Total Protein 7.3 Albumin 4.5 Globulin 2.8 Albumin/Globulin Ratio 1.6 Triglycerides 115 Cholesterol 132 L LDL Cholesterol, Calc 75 HDL Cholesterol 34 L TSH 0.416 L SARS-CoV-2 (PCR) Negative Influenza A (RT-PCR) Flu a negative Influenza B (RT-PCR) Flu b negative RSV (PCR) Negative PFSH Medical History History of urinary retention Elevated PSA Hx of skin cancer, basal cell BPH w urinary obs/LUTS COVID-19 Chronic renal failure, stage 3a Erectile dysfunction Peripheral arterial disease Hayfever Skin cancer (1998) Idiopathic gout involving toe (12/18/15) Essential hypertension (07/20/15) Mixed hyperlipidemia Surgical History Hx of circumcision History of back surgery Status post arthroscopy (2009) Status post hernia repair (03/2000) Status post hernia repair (03/1999) Status post arthroscopy (2002) Family History Father Fam hx-ischem heart disease Oral cancer Cancer Coronary artery disease Hearing impairment High cholesterol Hypertension Mother Age: 95 Family history of breast cancer in female Diabetes mellitus Hypertension High cholesterol Cancer Coronary artery disease Hearing impairment Sister No problems noted. Sister No problems noted. 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 travel history: recent ([place], [facility]) leisure activities: art ([place]) and other ([employer] Smoking Status: Former smoker Tobacco: How many years used: 50 (40 years every day, 10 years on and off.) Smokeless tobacco user: other (Cigarettes) quit status: has quit before second hand exposure: No alcohol intake: former substance use type: does not use caffeine: Yes Type(s) of exercise: aerobic Discharge Plan Discharge Plan Patient Disposition: Xfer Acute Care Hospital Discharge orders & Medications Prescriptions: No Action ASCORBIC ACID (VITAMIN C) 500 mg PO Q DAY Qty: 0 VITAMIN E (#CENTRUM SINGLES-VITAMIN E) 400 iu PO Q DAY Qty: 0 [FOLIC ACID] 1 tab PO Q DAY Qty: 0 atorvastatin [Lipitor] 10 mg tablet 10 mg PO QDAY Qty: 90 3RF allopurinol 300 mg tablet 300 mg PO DAILY Qty: 90 3RF tadalafil [Cialis] 20 mg tablet See Rx Instructions PO QDAYP PRN (Reason: erectile dysfunction) Qty: 60 6RF Dose Instruction: 1/2- 1 tab PO QDAYP PRN; Rx Instructions: 1/2- 1 tab PO QDAYP PRN; aspirin [Adult Aspirin Regimen] 81 mg tablet,delayed release (DR/EC) 81 mg PO DAILY Galzin 50 mg (zinc) capsule 50 mg PO DAILY Ocuvite Eye Health 50 mg-15 unit- 4.5 mg-2.5 mg tablet,chewable 2 tab PO DAILY magnesium oxide 500 mg capsule 500 mg PO DAILY tamsulosin [Flomax] 0.4 mg capsule 0.4 mg PO DAILY Qty: 90 3RF Follow up/Referrals: Al Johnston MD [Primary Care Provider] - Discharge Data Primary Care Provider: Al Johnston Quality VTE Deep Vein Thrombosis/Pulmonary Embolism Present on Admission: No
--- NOTE | 2024-12-16 18:57 | P.DS_ITS ---
History of Present Illness History of Present Illness Date Patient Seen: 12/16/24 Chief complaint: Cardiomyopathy EF 10-15% Narrative: Chief complaint: Dyspnea orthopnea secondary to previously undiagnosed congestive heart failure History of present illness: 74-year-old male with history of peripheral arterial disease status post revascularization of his lower extremities with 5 days of progressive dyspnea on exertion to shortness of breath at rest orthopnea and abdominal distention Patient presented to the emergency department. Findings in the emergency department: Dyspneic patient with mildly labored respirations BUN 32 creatinine 1 BNP 3950 troponin is negative Chest x-ray shows borderline enlarged cardiac silhouette with bilateral pleural effusions right greater than left cephalization of vessels but no focal infiltrates CT angiography does not show PE but does show calcification of coronary vessels Review of systems: No fever chills weight loss No chest pains or palpitations new line No abdominal pain nausea vomiting diarrhea new line No urinary symptoms No paresis or paresthesias Physical exam: General mildly labored respirations HEENT unremarkable new line 3 cm JVD new line Heart rate rhythm regular heart sounds distant with a summation gallop loudest at the apex Abdomen distended no anasarca Trace edema of ankles bilaterally EKG shows sinus rhythm with voltage criteria and axis deviation Echocardiogram: The left ventricle is mildly dilated. The ejection fraction is estimated to be 10-15%. Diastolic function could not be accurately assessed due to tachycardia. The left atrium is mildly dilated. The right ventricle is normal in size and function. There is moderate mitral regurgitation. Pulmonary artery pressures cannot be estimated because of the lack of a measurable TR jet velocity but the IVC suggests a CVP of around 8 mmHg. Assessment and plan: Acute congestive heart failure as evidenced by pulmonary edema orthopnea pleural effusions elevated troponin and summation gallop on examination: Case discussed with Cardiology and recommendations was transfer to a tertiary center for ischemic and workup that might involve LVAD Admit for treatment inpatient Acute diuresis Beta-lizandro ARB aspirin Echocardiogram History of peripheral artery disease and possible coronary artery disease Aspirin beta-lizandro and statin therapy DVT prophylaxis with enoxaparin Full code blue Greater than 55 minutes was involved in this patient discussion with other physicians reviewing images and records Discharge Providers Provider Date of admission: 12/16/24 09:07 Discharge Date: 12/16/24 Primary care physician: Al Johnston MD Consults: 12/16/24 16:57 Consult to Cardiology Routine Comment: Consulting Provider: Karen Trotter Reason for consultation: Severe cardiomyopathy EF 10-15% new onset Has provider been notified: Yes Discharge provider: Efrain Deras MD Exam Vital Signs (past 8 hours): - 12/16/24 11:00 12/16/24 11:30 12/16/24 11:45 Temperature 97.8 F Pulse Rate 110 H 104 H 114 H Respiratory Rate 18 16 Blood Pressure 125/83 134/81 Pulse Oximetry 95 95 96 Oxygen Delivery Method Room Air Oxygen Flow Rate 0 12/16/24 16:00 Temperature 97.6 F Pulse Rate 116 H Respiratory Rate 16 Blood Pressure 120/89 Pulse Oximetry 95 Oxygen Delivery Method Oxygen Flow Rate 0 Oxygen Delivery Method Room Air Oxygen Flow Rate 0 Objective Labs 12/16/24 06:53 12/16/24 06:53 Labs: Laboratory Results - last 24 hr 12/16/24 12/16/24 12/16/24 06:53 06:55 06:57 WBC 6.1 RBC 4.52 Hgb 13.6 Hct 41.2 MCV 91.2 MCH 30.2 MCHC 33.1 RDW 15.5 H Plt Count 135 L Neut % (Auto) 76.4 H Lymph % (Auto) 14.6 L [place] % (Auto) 6.4 Eos % (Auto) 1.5 L Baso % (Auto) 1.1 Neut # (Auto) 4600 Lymph # (Auto) 900 L [place] # (Auto) 400 Eos # (Auto) 100 Baso # (Auto) 100 PT 13.6 H INR 1.2 Sodium 139 Potassium 4.3 Chloride 107 Carbon Dioxide 16 L BUN 32 H Creatinine 1.07 Estimated GFR > 60 BUN/Creatinine Ratio 29.9 H Glucose 169 H Lactate 1.3 Calcium 9.9 Total Bilirubin 1.0 AST 38 ALT 28 Alkaline Phosphatase 93 Troponin I 0.030 NT-Pro-B Natriuret Pep 3950 H Total Protein 7.3 Albumin 4.5 Globulin 2.8 Albumin/Globulin Ratio 1.6 Triglycerides 115 Cholesterol 132 L LDL Cholesterol, Calc 75 HDL Cholesterol 34 L TSH 0.416 L SARS-CoV-2 (PCR) Negative Influenza A (RT-PCR) Flu a negative Influenza B (RT-PCR) Flu b negative RSV (PCR) Negative PFSH Medical History History of urinary retention Elevated PSA Hx of skin cancer, basal cell BPH w urinary obs/LUTS COVID-19 Chronic renal failure, stage 3a Erectile dysfunction Peripheral arterial disease Hayfever Skin cancer (1998) Idiopathic gout involving toe (12/18/15) Essential hypertension (07/20/15) Mixed hyperlipidemia Surgical History Hx of circumcision History of back surgery Status post arthroscopy (2009) Status post hernia repair (03/2000) Status post hernia repair (03/1999) Status post arthroscopy (2002) Family History Father Fam hx-ischem heart disease Oral cancer Cancer Coronary artery disease Hearing impairment High cholesterol Hypertension Mother Age: 95 Family history of breast cancer in female Diabetes mellitus Hypertension High cholesterol Cancer Coronary artery disease Hearing impairment Sister No problems noted. Sister No problems noted. 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 Discharge Data Primary Care Provider: Al Johnston VTE Deep Vein Thrombosis/Pulmonary Embolism Present on Admission: No
[2024-12-17] VITALS: BP 123/80; PULSE 124; RESP 18; TEMP 35.8; O2SAT 93
== END 2024-12-17 01:30 | disposition short-term general hospital (02) | DRG 291 ==
LOC: ED 06:53 → AC 09:08
PROVIDERS: Admitting Provider Internal Medicine; Emergency Provider Emergency Medicine; PCP Internal Medicine; Referring Provider Emergency Medicine; Visit Provider Internal Medicine
DX: I11.0 Hypertensive heart disease with heart failure (principal); I50.21 Acute systolic (congestive) heart failure; I25.10 Atherosclerotic heart disease of native coronary artery without angina pectoris; I73.9 Peripheral vascular disease, unspecified; R79.89 Other specified abnormal findings of blood chemistry; E78.2 Mixed hyperlipidemia; N40.0 Benign prostatic hyperplasia without lower urinary tract symptoms; F17.210 Nicotine dependence, cigarettes, uncomplicated
CPT/HCPCS: 0241U; 36415; 71046; 71275; 80053; 80061; 83605; 83880; 84443; 84484; 85025; 85610; 87040; 93005; 93306; 96361; 96365; 96366; 99284; 99291; J0696; J1650; J1938; Q9967

== ENCOUNTER → 2024-12-27 10:37 | Outpatient (CLI) | payer MEDICARE, BC, SELFPAY ==
[2024-12-16 12:35] VITALS: BMI 25.5
[2024-12-27 11:52] LABS: Creatinine Urine Random 50.63 mg/dL
[2024-12-27 11:55] LABS: Add Manual Diff / Slide Review NO; Basophils Absolute Auto 100 /uL (0-100); Basophils Percent Auto 1.4 % (0-2); Eosinophils Absolute Auto 100 /uL (0-450); Eosinophils Percent Auto 1.7 % (2-4); Hematocrit 39.9 % (41-53); Hemoglobin 13.2 g/dL (13.5-17.5); Lymphocytes Absolute Auto 1100 /uL (1100-4500); Lymphocytes Percent Auto 17.7 % (25-40); Mean Corpuscular HGB Conc 33.2 % (30-36); Mean Corpuscular Hemoglobin 30.5 PG (26-34); Mean Corpuscular Volume 91.8 fL (80-100); Monocytes Absolute Auto 500 /uL (0-900); Monocytes Percent Auto 7.6 % (3-14); Neutrophils Absolute Auto 4400 /uL (1500-7000); Neutrophils Percent Auto 71.6 % (50-75); Platelet Count 179 X10^3/uL (150-400); Red Blood Cell Count 4.34 X10^6/uL (4.5-5.9); Red Cell Distribution Width 15.2 % (11.6-14.8); White Blood Cell Count 6.1 X10^3/uL (4.5-11.0)
[2024-12-27 11:57] LABS: Microalbumin Urine Random 0.9 mg/dL (0-1.6)
[2024-12-27 12:05] LABS: Hemoglobin A1C% w Est Avg Glu 5.4 % (4.0-6.0)
[2024-12-27 12:25] LABS: Alanine Aminotransferase 53 IU/L (<50); Albumin 4.4 g/dL (3.5-5.0); Albumin Globulin Ratio 2.1 (1.0-2.8); Alkaline Phosphatase 85 U/L (38-126); Aspartate Aminotransferase 41 IU/L (17-59); Bilirubin Total 0.7 mg/dL (0.2-1.3); Blood Urea Nitrogen 38 mg/dL (9-20); Calcium 9.6 mg/dL (8.4-10.2); Carbon Dioxide 30 mmol/L (22-32); Chloride 100 mmol/L (98-107); Cholesterol 126 mg/dL (140-199); Estimated Glomerular Filt Rate 52 mL/min (>60); Globulin 2.1 g/dL (1.7-4.1); Glucose 120 mg/dL (80-110); HDL Cholesterol 37 mg/dL (40-60); HEMOLYSIS < 15 (0-50); LDL Cholesterol Calculated 67 mg/dL (<100); Potassium 4.8 mmol/L (3.4-5.1); Sodium 137 mmol/L (137-145); Total Protein 6.5 g/dL (6.3-8.2); Triglycerides 108 mg/dL (35-150)
== END ==
PROVIDERS: Family Medicine; PCP Internal Medicine; Referring Provider Internal Medicine; Visit Provider Internal Medicine
DX: I50.9 Heart failure, unspecified (principal); E11.9 Type 2 diabetes mellitus without complications
CPT/HCPCS: 80053; 80061; 82043; 82570; 83036; 85025

== ENCOUNTER → 2025-01-12 14:22 | Outpatient (CLI) | payer MEDICARE, BC, SELFPAY ==
[2024-12-16 12:35] VITALS: BMI 25.5
[2025-01-12 15:40] LABS: Blood Urea Nitrogen 35 mg/dL (9-20); Calcium 9.5 mg/dL (8.4-10.2); Carbon Dioxide 25 mmol/L (22-32); Chloride 105 mmol/L (98-107); Estimated Glomerular Filt Rate 52 mL/min (>60); Glucose 110 mg/dL (70-99); HEMOLYSIS < 15 (0-50); Potassium 3.9 mmol/L (3.4-5.1); Sodium 142 mmol/L (137-145)
== END ==
PROVIDERS: PCP Internal Medicine; Referring Provider Internal Medicine; Visit Provider Internal Medicine
DX: I50.20 Unspecified systolic (congestive) heart failure (principal)
CPT/HCPCS: 36415; 80048

== ENCOUNTER → 2025-02-04 15:37 | Outpatient (CLI) | payer MEDICARE, BC, SELFPAY ==
[2024-12-16 12:35] VITALS: BMI 25.5
--- NOTE | 2025-02-04 15:39 | DI.US.S_ITS ---
PROCEDURE: US ARTERIAL DUPLEX LE BI INDICATIONS: ATEROSCLEROSIS [place] TECHNIQUE: Color and pulse Doppler interrogation was performed of both lower extremity arterial systems, with image documentation. COMPARISON: None. FINDINGS: Right lower extremity: Common femoral artery: 80 cm/sec, with triphasic flow. Deep femoral artery: 570 cm/sec, with triphasic flow. Proximal superficial femoral artery: 209 cm/sec, with biphasic flow. There is a prominent collateral branch vessel off the proximal femoral artery. Mid superficial femoral artery: Occluded Distal superficial femoral artery: Occluded. Popliteal artery: Occluded cm/sec Posterior tibial artery: 35 cm/sec, with monophasic flow. Anterior tibial artery 28 cm/sec, with monophasic flow. Dorsalis pedis artery is occluded. Gomes-scale imaging description: Heavy plaque. Left lower extremity: Common femoral artery: 115 cm/sec, with triphasic flow. Deep femoral artery: 209 cm/sec, with biphasic flow. Proximal superficial femoral artery: Occluded Mid superficial femoral artery: Occluded Distal superficial femoral artery: Occluded Popliteal artery: 11 cm/sec, with monophasic flow. There is a feeding collateral. Posterior tibial artery: 11 cm/sec, with monophasic flow. Anterior tibial artery/dorsalis pedis: Six cm/sec, with monophasic flow. Gomes-scale imaging description: Heavy plaque. IMPRESSION: Chronic appearing bilateral femoral artery occlusion with collateral branches forming in the proximal femoral artery or arising from widely patent bilateral profundus femoral arteries. Two vessel runoff to the right foot. Single vessel runoff to the left foot. This could be confirmed by conventional or CT angiography. Dictated by: Joelle David M.D. on 02/04/2025 at 21:04 Approved by: Joelle David M.D. on 02/04/2025 at 21:16
== END ==
PROVIDERS: PCP Internal Medicine; Referring Provider Internal Medicine Cardiovascular Disease; Visit Provider Internal Medicine Cardiovascular Disease
DX: I25.10 Atherosclerotic heart disease of native coronary artery without angina pectoris (principal); I77.89 Other specified disorders of arteries and arterioles
CPT/HCPCS: 93925

== ENCOUNTER → 2025-02-18 09:45 | Outpatient (CLI) | payer MEDICARE, BC, SELFPAY ==
[2024-12-16 12:35] VITALS: BMI 25.5
--- NOTE | 2025-02-18 09:47 | DI.US.S_ITS ---
PROCEDURE: US ARTERIAL DUPLEX UE BI INDICATIONS: Atherosclerosis of [place] coronary artery TECHNIQUE: Color and pulse Doppler interrogation was performed of bilateral upper extremity arterial systems, with image documentation. COMPARISON: [facility], CT, CT ANGIO CHEST PE PROTOCOL, 12/16/2024, 7:51. FINDINGS: Right upper extremity: Subclavian artery (mid): 68 cm/sec, with biphasic flow. Axillary artery: 46 cm/sec, with biphasic flow. Brachial artery (proximal): 42 cm/sec, with triphasic flow. Radial artery (proximal): 29 cm/sec, with triphasic flow. Radial artery (mid): 27 cm/sec, with triphasic flow. Radial artery (distal): 22 cm/sec, with triphasic flow. Ulnar artery (proximal): 33 cm/sec, with triphasic flow. Ulnar artery (mid): 29 cm/sec. with triphasic flow. Ulnar artery (distal): 23 cm/sec, with triphasic flow. Gomes-scale imaging description: No significant atherosclerotic disease Left upper extremity: Subclavian artery (proximal): Moderate plaque noted. Subclavian artery (mid): 127 cm/sec, with biphasic flow. Axillary artery: 92 cm/sec, with biphasic flow. Brachial artery (proximal): 73 cm/sec, with biphasic flow. Radial artery (proximal): 43 cm/sec, with triphasic flow. Radial artery (mid): 42 cm/sec, with triphasic flow. Radial artery (distal): 41 cm/sec. with triphasic flow. Ulnar artery (proximal): 29 cm/sec, with triphasic flow. Ulnar artery (mid): 35 cm/sec, with triphasic flow. Ulnar artery (distal): 37 cm/sec. with triphasic flow. Gomes-scale imaging description: Moderate atherosclerotic plaque noted at the origin of the subclavian artery on the left. 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 No significant stenosis by peak systolic velocity criteria. Dictated by: Jaime Sloan M.D. on 02/18/2025 at 14:20 Approved by: Jaime Sloan M.D. on 02/18/2025 at 14:24
== END ==
LOC: US 09:46
PROVIDERS: PCP Internal Medicine; Referring Provider Internal Medicine Cardiovascular Disease; Visit Provider Internal Medicine Cardiovascular Disease
DX: I25.10 Atherosclerotic heart disease of native coronary artery without angina pectoris (principal); I70.208 Unspecified atherosclerosis of native arteries of extremities, other extremity
CPT/HCPCS: 93930

== ENCOUNTER → 2025-03-16 06:47 | Outpatient (CLI) | payer MEDICARE, BC, SELFPAY ==
[2024-12-16 12:35] VITALS: BMI 25.5
--- NOTE | 2025-03-16 06:48 | DI.US.S_ITS ---
PROCEDURE: US ARTERIAL DUPLEX LE INDICATIONS: RECENT CARDIAC CATH; POSSIBLE FEMORAL ARTERY HEMATOMAS TECHNIQUE: Color and pulse Doppler interrogation was performed of both lower extremity arterial systems, with image documentation. COMPARISON: [facility], , ARTERIAL DUPLEX LE , 02/04/2025, 16:33. FINDINGS/IMPRESSION: The common femoral arteries and femoral veins are widely patent. There is no outpouching to suggest aneurysm or pseudoaneurysm. Dictated by: Jaime Sloan M.D. on 03/16/2025 at 14:01 Approved by: Jaime Sloan M.D. on 03/16/2025 at 14:02
== END ==
LOC: US 06:48
PROVIDERS: PCP Internal Medicine; Referring Provider Internal Medicine; Visit Provider Internal Medicine
DX: I97.410 Intraoperative hemorrhage and hematoma of a circulatory system organ or structure complicating a cardiac catheterization (principal)
CPT/HCPCS: 93925

== ENCOUNTER → 2025-04-11 06:40 | Outpatient (CLI) | payer MEDICARE, BC, SELFPAY ==
[2024-12-16 12:35] VITALS: BMI 25.5
[2025-04-11 09:18] LABS: Prostate Specific Antigen 3.76 ng/mL (0.10-4.00)
== END ==
PROVIDERS: PCP Internal Medicine; Referring Provider Urology; Visit Provider Urology
DX: R97.20 Elevated prostate specific antigen [PSA] (principal)
CPT/HCPCS: 36415; 84153

== ENCOUNTER → 2025-05-16 06:44 | Outpatient (CLI) | payer MEDICARE, BC, SELFPAY ==
[2024-12-16 12:35] VITALS: BMI 25.5
[2025-05-16 09:07] LABS: Alanine Aminotransferase 22 IU/L (<50); Albumin 4.5 g/dL (3.5-5.0); Albumin Globulin Ratio 2.0 (1.0-2.8); Alkaline Phosphatase 119 U/L (38-126); Blood Urea Nitrogen 28 mg/dL (9-20); Calcium 9.5 mg/dL (8.4-10.2); Carbon Dioxide 25 mmol/L (22-32); Chloride 104 mmol/L (98-107); Cholesterol 116 mg/dL (140-199); Estimated Glomerular Filt Rate > 60 mL/min (>60); Globulin 2.3 g/dL (1.7-4.1); Glucose 94 mg/dL (70-99); HDL Cholesterol 33 mg/dL (40-60); HEMOLYSIS < 15 (0-50); Potassium 4.0 mmol/L (3.4-5.1); Sodium 141 mmol/L (137-145); Total Protein 6.8 g/dL (6.3-8.2); Triglycerides 139 mg/dL (35-150)
== END ==
PROVIDERS: PCP Internal Medicine; Referring Provider Internal Medicine; Visit Provider Internal Medicine
DX: I10 Essential (primary) hypertension (principal); N18.31 Chronic kidney disease, stage 3a; E78.2 Mixed hyperlipidemia
CPT/HCPCS: 36415; 80053; 80061

== ENCOUNTER → 2025-07-19 07:01 | Outpatient (CLI) | payer MEDICARE, BC, SELFPAY ==
[2024-12-16 12:35] VITALS: BMI 25.5
[2025-07-19 08:21] LABS: Alanine Aminotransferase 23 IU/L (<50); Albumin 4.4 g/dL (3.5-5.0); Albumin Globulin Ratio 1.8 (1.0-2.8); Alkaline Phosphatase 104 U/L (38-126); Blood Urea Nitrogen 28 mg/dL (9-20); Calcium 9.7 mg/dL (8.4-10.2); Carbon Dioxide 21 mmol/L (22-32); Chloride 106 mmol/L (98-107); Cholesterol 110 mg/dL (140-199); Estimated Glomerular Filt Rate > 60 mL/min (>60); Globulin 2.4 g/dL (1.7-4.1); Glucose 109 mg/dL (70-99); HDL Cholesterol 38 mg/dL (40-60); HEMOLYSIS < 15 (0-50); Potassium 4.3 mmol/L (3.4-5.1); Sodium 139 mmol/L (137-145); Total Protein 6.8 g/dL (6.3-8.2); Triglycerides 122 mg/dL (35-150)
== END ==
PROVIDERS: PCP Internal Medicine; Referring Provider Internal Medicine; Visit Provider Nurse Practitioner
DX: I25.10 Atherosclerotic heart disease of native coronary artery without angina pectoris (principal); I25.83 Coronary atherosclerosis due to lipid rich plaque
CPT/HCPCS: 36415; 80053; 80061